=== PATIENT | female | born 1950 | race Caucasian/White ===

== ENCOUNTER 2021-09-29 09:23 | Emergency (ER) | payer MEDICARE, OTHER, SELFPAY ==
[2021-09-29 10:00] VITALS: BP 153/81; PULSE 63; RESP 14; TEMP 36.7; O2SAT 97; BMI 37.8
--- NOTE | 2021-09-29 10:19 | ED_ITS ---
HPI - General Adult General Chief complaint: Dental/Oral/Mouth Injury/Pain Stated complaint: Right sided face pain Time Seen by Provider: 09/29/21 10:02 Source: patient Mode of arrival: ambulatory Limitations: no limitations History of Present Illness HPI narrative: 70-year-old female coming in today complaining of pain in the right side of the face going on for a couple days now. She denies any nausea or vomiting. States that it causes pain in her upper teeth when she has to chew. She denies pain inside her ear but she feels like the pain spreads up and down her face. She states that she felt cold and then hot this morning but no measured fevers. No difficulty breathing or swallowing. No significant swelling of her face noted but she did notice puffy eyes this morning. Patient does have a retainer with false tooth. She states that when she puts the retainer in it goes around her molars and she feels very irritated back there however today it does feel slightly better than it did yesterday. Yesterday however she also noted that there was a yellow discharge coming from her tooth. Of note, patient is allergic/intolerant to Toradol and morphine Related Data Previous Rx's Medication Instructions Recorded amoxicillin 875 mg-potassium 1 tab PO BID 7 days #14 tabs 09/29/21 clavulanate 125 mg tablet Allergies Allergy/AdvReac Type Severity Reaction Status Date / Time latex Allergy Unknown Verified 09/29/21 10:25 ketorolac [From Toradol] AdvReac Unknown Verified 09/29/21 10:25 morphine AdvReac Unknown Verified 09/29/21 10:25 Review of Systems Status of ROS: Reports: 6 or more systems reviewed and unremarkable except as noted in History and below [facility] Social History Smoking Status: Never smoker How often do you have a drink containing alcohol: monthly or less AUDIT-C Alcohol total score: 1 Non-prescribed substance use: denies use Exam Narrative: Exam Narrative: Well-nourished well-developed patient in no acute distress. Alert and oriented. Answers questions appropriately. Mood and affect are appropriate. Thoughts are goal oriented and rational. No tangential or magical thinking noted. Patient speaks in full sentences without needing to catch their breath. Voice sounds normal HEENT: Normocephalic atraumatic. Pupils are equally round reactive to light. Extraocular muscles are intact. Conjunctivae are moist without any icterus noted. Moist mucous membranes. Posterior pharynx is normal. Neck is soft without any lymphadenopathy or thyromegaly. No masses are appreciated. Patient has acute tenderness directly over the 2nd molar on the right upper jaw. She has no tenderness around this this tooth, the gums are not swollen or erythematous. There is no fluctuance noted. She has no tenderness to palpation of the surrounding teeth. Her pain is acutely over 1 tooth. While her upper and lower eyelids bilaterally are slightly puffy I do not appreciate any swelling over the jaw, or cheek. She has no tenderness to palpation of the buccal mucosa. TMs are clear bilaterally. Skin: Well perfused without any obvious rashes. Const: Vital Signs, click to edit/add: Vital Signs - 24 hr 09/29/21 10:00 Temperature 98.1 F Pulse Rate [Pulse Oximeter] 63 Respiratory Rate 14 Blood Pressure [Ri ght Upper Arm] 153/81 H Pulse Oximetry 97 Oxygen Delivery Me thod Room Air Course Vital Signs Vital signs: Initial Vital Signs Temperature 98.1 F 09/29/21 10:00 Temperature Source Temporal Artery Scan 09/29/21 10:00 Pulse Rate 63 09/29/21 10:00 Pulse Rhythm 09/29/21 10:00 Respiratory Rate 14 09/29/21 10:00 Blood Pressure 153/81 H 09/29/21 10:00 Blood Pressure Mean 105 09/29/21 10:00 Blood Pressure Position Sitting 09/29/21 10:00 Pulse Oximetry 97 09/29/21 10:00 Oxygen Delivery Method 09/29/21 10:00 Vital Signs Temperature 98.1 F 09/29/21 10:00 Pulse Rate 63 09/29/21 10:00 Respiratory Rate 14 09/29/21 10:00 Blood Pressure 153/81 H 09/29/21 10:00 Pulse Oximetry 97 09/29/21 10:00 Oxygen Delivery Method 09/29/21 10:00 Temperature 98.1 F 09/29/21 10:00 Pulse Rate 63 09/29/21 10:00 Respiratory Rate 14 09/29/21 10:00 Blood Pressure 153/81 H 09/29/21 10:00 Pulse Oximetry 97 09/29/21 10:00 Oxygen Delivery Method 09/29/21 10:00 Medical Decision Making MDM Narrative Medical decision making narrative: Dental pain. Question a deeper infection that we are not seeing on exam today given the drainage that she noted yesterday. We will go ahead and treat her with Augmentin and she is instructed to follow up with a dentist as soon as she can. Patient was agreeable had no other questions. Discharge Plan Discharge Clinical Impression: Toothache, Dental infection Patient Disposition: Home, Self-Care Condition: Stable Additional Instructions: Take all antibiotics as prescribed. Okay to use Tylenol as needed for discomfort. Follow up with a dentist as soon as you can. Prescriptions: New amoxicillin-pot clavulanate 875-125 mg tablet 1 tab PO BID 7 Days Qty: 14 0RF Stand Alone Forms: [employer] Local Info Instructions
[2021-09-29 10:35] VITALS: BP 153/81; PULSE 63; RESP 14; TEMP 36.7; O2SAT 97
== END 2021-09-29 10:36 | disposition home or self-care (01) ==
PROVIDERS: Emergency Provider Family Medicine
DX: K04.7 Periapical abscess without sinus (principal)
CPT/HCPCS: 99282; 99283

== ENCOUNTER 2023-11-06 20:08 | Inpatient (IN) | payer MEDICARE, OTHER, SELFPAY ==
[2023-11-06 20:24] VITALS: BP 99/63; PULSE 82; RESP 18; TEMP 37.7; O2SAT 96; BMI 37.1
--- NOTE | 2023-11-06 20:38 | CRLHL7_ITS ---
For Patients: As a result of the 21st Century Cures Act, medical imaging exams and procedure reports are released immediately into your electronic medical record. You may view this report before your referring provider. If you have questions, please contact your health care provider. INDICATION: Flank pain, kidney stone suspected. TECHNIQUE: CT abdomen and pelvis without contrast, stone protocol. COMPARISON: Right flank pain. FINDINGS: Kidney/ureters: Evaluation of distal ureters is study limited by hardware associated artifact from the right total hip arthroplasty. Kidneys are normal in caliber. No kidney or ureteral stones and no hydronephrosis. Ureters are normal in caliber with nonspecific diffuse periureteral stranding. Liver/gallbladder/bile ducts: The liver is normal in size, shape and attenuation. Gallbladder is normal without visualized stones or inflammation. No biliary dilatation. Spleen/pancreas/adrenal glands: Right adrenal nodule measures 1.7 cm and approximately 21 Hounsfield units (2/41). The spleen, left adrenal gland, and pancreas are within normal limits. GI tract: The bowel is unremarkable. Normal appendix. Abdominal wall/omentum/peritoneum: No free air or significant free fluid. No mass or inflammation. Ventral abdominal wall soft tissue thickening/scarring, nonspecific. Lymph nodes: No lymphadenopathy. Pelvis: Small calcification along the ventral uterine fundus likely reflects a calcified fibroid. Lower chest: Small hiatal hernia. Bulky mitral annulus calcifications. Asymmetric left chest wall soft tissue thickening and stranding. Bones: Multilevel degenerative changes in the thoracolumbar spine. Diffuse osseous demineralization. IMPRESSION: : 1. There are no visualized renal or ureteral calculi, and no hydroureteronephrosis. Of note, evaluation of the distal ureters is somewhat limited by artifact from right total hip arthroplasty. 2. There is nonspecific bilateral periureteral fat stranding, which may be related to age related changes, though can be seen in the setting of an ascending urinary tract infection. Consider correlation with urinalysis. 3. Asymmetric left chest wall soft tissue thickening and stranding near the partially visualized left inferior breast. Correlation with physical examination, and prior mammographic results (if available), is recommended. 4. Right adrenal nodule measures 1.7 cm and approximately 21 Hounsfield units, and is indeterminate on this single-phase CT. This could be further characterized with a nonemergent adrenal protocol CT. Please note that all CT scans at this facility use dose modulation, iterative reconstruction, and/or weight-based dosing when appropriate to reduce radiation dose to as low as reasonably achievable. Dictated by Lavelle Good MD @ 11/06/2023 10:01:47 PM (Electronically Signed)
--- NOTE | 2023-11-06 20:46 | ED.GENADULT ---
HPI - General Adult General Date Seen: 11/06/23 Chief complaint: Urogenital Problems, Female Stated complaint: Pain, frequency, urgency, nausea Time Seen by Provider: 11/06/23 20:33 Source: patient, RN notes reviewed and old records reviewed Mode of arrival: ambulatory Limitations: no limitations History of Present Illness HPI narrative: Patient is a 73-year-old woman who says that over the weekend she developed pain in her right flank which has gotten progressively worse, she now has pain in her right abdomen as well. She has had nausea, no fever that she knows of but she says she felt warm last night. She does note that she has had dysuria frequency and urgency also since the weekend. She has been other overnight every hour going to the bathroom. She has not noted blood in her urine. She does have a history of kidney stones per her report. She denies abdominal surgeries. Takes lisinopril and metoprolol for high blood pressure, denies other medical history. Today she has had no appetite, she says she has been drinking water. She lists allergies to Toradol and morphine, she says when she had that kidney stone years ago they gave her both of them and they cause some kind of clenching sensation in her chest. She says they then used Dilaudid instead and she eventually passed stone on her own. She did not need any specific treatment for an allergic reaction. She does not smoke or drink. Related Data Home Medications ?Medication ?Instructions ?Recorded ?Confirmed lisinopril 10 mg tablet 10 mg PO DAILY 09/29/21 11/06/23 metoprolol tartrate 25 mg tablet 25 mg PO BID 09/29/21 11/06/23 Previous Rx's ?Medication ?Instructions ?Recorded amoxicillin 875 mg-potassium 1 tab PO BID 7 days #14 tabs 09/29/21 clavulanate 125 mg tablet Allergies Allergy/AdvReac Type Severity Reaction Status Date / Time latex Allergy Unknown Verified 11/06/23 20:27 ketorolac [From Toradol] AdvReac Unknown Verified 11/06/23 20:27 morphine AdvReac Unknown Verified 11/06/23 20:27 Review of Systems Status of ROS: Reports: 10 or more systems reviewed and unremarkable except as noted in History and below PFSH PFSH Social History Smoking Status: Never smoker How often do you have a drink containing alcohol: monthly or less AUDIT-C Alcohol total score: 1 Non-prescribed substance use: denies use Exam Narrative: Exam Narrative: Vital signs as noted above. In general, an alert, mildly ill-appearing elderly woman, she looks uncomfortable. Head: Normocephalic, atraumatic. Eyes: Pupils are equal reactive. Extraocular movements are full. Conjunctivae are normal. ENT: Mucous membranes are somewhat dry. Neck: Supple without lymphadenopathy. Heart: Regular rate and rhythm. No murmur or rub. Lungs: Clear bilaterally. No increased work of breathing, crackles or wheezes. Abdomen: Abdomen is soft and nondistended, she has diffuse right-sided tenderness greater in the upper right quadrant. Negative Handley's. Positive CVA tenderness on the right. Extremities: Well perfused. No edema. No calf tenderness. Pulses intact. Neurologic: Patient is alert and oriented to person and place. Speech is fluent. Face is symmetric. Moves all extremities equally. Affect: Normal. Skin: Warm and dry. Well perfused. Const: Vital Signs, click to edit/add: Vital Signs - 24 hr 11/06/23 20:24 11/06/23 21:11 11/06/23 21:11 Temperature 99.8 F H Pulse Rate [Right Pulse Oximeter] 82 Respiratory Rate 18 Blood Pressure [Ri ght Upper Arm] 99/63 Pulse Oximetry 96 93 93 Oxygen Delivery Me thod Room Air Nasal Cannula Oxygen Flow Rate 2 11/06/23 21:12 11/06/23 22:05 Temperature Pulse Rate [Right Pulse Oximeter] 83 81 Respiratory Rate 14 16 Blood Pressure [Ri ght Upper Arm] 104/57 L 124/62 Pulse Oximetry 93 97 Oxygen Delivery Me thod Nasal Cannula Nasal Cannula Oxygen Flow Rate 2 1 Documenting provider has reviewed patient's vital signs: yes Course Course ED Course: Patient presents with gradually worsening right-sided flank and abdominal pain associated with urinary symptoms over the past several days. She is afebrile here but temp is 99.8?, blood pressure is 99/63. Heart rate is normal at this time. Diagnostic considerations would include pyelonephritis, kidney stone, cholecystitis, pancreatitis, bowel obstruction, appendicitis among others. IV will be established, L of normal saline, labs are pending. CT scan of the abdomen without contrast ordered CT of the abdomen by my review showed some stranding around the ureters, no significant hydronephrosis, normal gallbladder. Radiology read as follows:Patient: [facility] Facility: [facility] RIS Site . Site : [id number] Study: CT-Abdomen/Pelvis W/O-11/06/2023 8:53:12 PM Ordering Physician: Henrik Guzman Final Report: INDICATION: Flank pain, kidney stone suspected. TECHNIQUE: CT abdomen and pelvis without contrast, stone protocol. COMPARISON: Right flank pain. FINDINGS: Kidney/ureters: Evaluation of distal ureters is study limited by hardware associated artifact from the right total hip arthroplasty. Kidneys are normal in caliber. No kidney or ureteral stones and no hydronephrosis. Ureters are normal in caliber with nonspecific diffuse periureteral stranding. Liver/gallbladder/bile ducts: The liver is normal in size, shape and attenuation. Gallbladder is normal without visualized stones or inflammation. No biliary dilatation. Spleen/pancreas/adrenal glands: Right adrenal nodule measures 1.7 cm and approximately 21 Hounsfield units (2/41). The spleen, left adrenal gland, and pancreas are within normal limits. GI tract: The bowel is unremarkable. Normal appendix. Abdominal wall/omentum/peritoneum: No free air or significant free fluid. No mass or inflammation. Ventral abdominal wall soft tissue thickening/scarring, nonspecific. Lymph nodes: No lymphadenopathy. Pelvis: Small calcification along the ventral uterine fundus likely reflects a calcified fibroid. Lower chest: Small hiatal hernia. Bulky mitral annulus calcifications. Asymmetric left chest wall soft tissue thickening and stranding. Bones: Multilevel degenerative changes in the thoracolumbar spine. Diffuse osseous demineralization. IMPRESSION: : 1. There are no visualized renal or ureteral calculi, and no hydroureteronephrosis. Of note, evaluation of the distal ureters is somewhat limited by artifact from right total hip arthroplasty. 2. There is nonspecific bilateral periureteral fat stranding, which may be related to age related changes, though can be seen in the setting of an ascending urinary tract infection. Consider correlation with urinalysis. 3. Asymmetric left chest wall soft tissue thickening and stranding near the partially visualized left inferior breast. Correlation with physical examination, and prior mammographic results (if available), is recommended. 4. Right adrenal nodule measures 1.7 cm and approximately 21 Hounsfield units, and is indeterminate on this single-phase CT. This could be further characterized with a nonemergent adrenal protocol CT. Please note that all CT scans at this facility use dose modulation, iterative reconstruction, and/or weight-based dosing when appropriate to reduce radiation dose to as low as reasonably achievable. Dictated by Lavelle Good MD Blood pressure did respond nicely to fluids, 124/62. She has not had any tachycardia while here. Her labs are overall reassuring in terms of sepsis markers, normal lactate and normal procalcitonin but she does have an elevated white blood count of 16 with 88% neutrophils. She has a normal BUN and creatinine, normal electrolytes. Lactate of 1.6, normal LFTs normal lipase and a CRP of 6.1. Urinalysis was only a small amount of urine so they did not do a micro only a diff. however, she has 3+ blood, positive nitrites and 3+ leukocyte esterase. She also has 3+ ketones. No glucose. Overall, given age, amount of discomfort and evidence of likely ascending urinary tract infection on CT I think she would fare best with IV antibiotics and observation as well as continued hydration. Case discussed with Dr. Lewis who has accepted the patient to the hospitalist service. Given Rocephin 1 g IV. Vital Signs Vital signs: Initial Vital Signs Temperature 99.8 F H 11/06/23 20:24 Temperature Source Temporal Artery Scan 11/06/23 20:24 Pulse Rate 82 11/06/23 20:24 Respiratory Rate 18 11/06/23 20:24 Blood Pressure 99/63 11/06/23 20:24 Blood Pressure Mean 75 11/06/23 20:24 Blood Pressure Position Sitting 11/06/23 20:24 Pulse Oximetry 96 11/06/23 20:24 Oxygen Delivery Method Room Air 11/06/23 20:24 Vital Signs Temperature 99.8 F H 11/06/23 20:24 Pulse Rate 82 11/06/23 20:24 Respiratory Rate 18 11/06/23 20:24 Blood Pressure 99/63 11/06/23 20:24 Pulse Oximetry 96 11/06/23 20:24 Oxygen Delivery Method Room Air 11/06/23 20:24 Temperature 99.8 F H 11/06/23 20:24 Pulse Rate 81 11/06/23 22:05 Respiratory Rate 16 11/06/23 22:05 Blood Pressure 124/62 11/06/23 22:05 Pulse Oximetry 97 11/06/23 22:05 Oxygen Delivery Method Nasal Cannula 11/06/23 22:05 Oxygen Flow Rate 1 11/06/23 22:05 Medications Administered Medications: Discontinued Medications Generic Name Dose Route Start Last Admin Trade Name Freq PRN Reason Stop Dose Admin Hydromorphone HCl 0.5 mg 11/06/23 20:38 11/06/23 20:58 Hydromorphone 0.5 Mg/0.5 Ml Inj IVP 11/06/23 20:39 0.5 mg ONCE ONE Administration Sodium Chloride 1,000 mls @ 1,000 mls/hr 11/06/23 20:45 11/06/23 20:58 0.9 % Sodium Chloride 1000 Ml IV 11/06/23 21:44 1,000 mls/hr .Q1H YARA Administration Ceftriaxone Sodium 1 gm/ 100 mls @ 200 mls/hr 11/06/23 22:17 11/06/23 22:25 Sodium Chloride IVPB 11/06/23 22:18 200 mls/hr ONCE ONE Administration Ondansetron HCl 4 mg 11/06/23 20:38 11/06/23 20:58 Ondansetron 2 Mg/Ml Inj IVP 11/06/23 20:39 4 mg ONCE ONE Administration Medical Decision Making Lab Data Labs: Lab Results 11/06/23 11/06/23 Range/Units 20:56 22:00 WBC 16.05 H (4.50-11.00) K/uL RBC 5.43 H (4.00-5.20) m/uL Hgb 14.7 (12.0-16.0) gm/dL Hct 46.2 (33.0-51.0) % MCV 85 (80-100) fL MCH 27 (26-34) pg MCHC 32 (32-36) gm/dL RDW Coeff of Lisa 16.0 H (11.5-15.5) % Plt Count 571 H (140-440) K/uL Neut % (Auto) 88.2 H (42.0-72.0) % Lymph % (Auto) 4.9 L (20-44) % Potter % (Auto) 5.7 (0.0-11.0) % Eos % (Auto) 0.9 (0.0-7.0) % Baso % (Auto) 0.1 (0.0-3.0) % Neut # (Auto) 14.20 H (1.7-7.0) K/uL Lymph # (Auto) 0.80 L (0.90-2.90) K/uL Potter # (Auto) 0.90 (0.00-0.90) K/UL Eos # (Auto) 0.10 (0.00-0.50) K/uL Baso # (Auto) 0.00 (0.00-0.30) K/uL Abs Immat Gran (auto) 0.00 (0.00-0.30) K/uL Imm/Tot Granulo (auto) 0.2 % Sodium 135 (135-149) mmol/L Potassium 4.1 (3.6-5.1) mmol/L Chloride 102 (96-114) mmol/L Carbon Dioxide 25 (20-32) mmol/L Anion Gap 8 (7-15) mEq/L BUN 13 (7-30) mg/dL Creatinine 1.0 (0.5-1.5) mg/dL Estimated Creat Clear 41.97 Estimated GFR 59 ml/min Glucose 138 H (60-115) mg/dL Lactate 1.6 (0.5-1.9) mmol/L Calcium 9.3 (8.4-10.6) mg/dL Total Bilirubin 1.2 (0.1-1.5) mg/dL Direct Bilirubin 0.3 (0.0-0.5) mg/dL AST 25 (12-35) U/L ALT 18 (4-35) U/L Alkaline Phosphatase 90 (40-150) U/L C-Reactive Protein 6.1 H (0.5-1.0) mg/dL Total Protein 6.8 (6.0-8.3) g/dL Albumin 4.0 (3.3-5.0) g/dL Lipase 39 (23-300) U/L Procalcitonin 0.07 (<0.50) ng/mL Urine Color Yellow (Yellow) Urine Appearance Cloudy A (Clear) Urine pH 6.0 (5.0-8.5) Ur Specific [place] 1.025 (1.000-1.030) Urine Protein 3+ A (Negative) Urine Glucose (UA) Negative (Negative) Urine Ketones 3+ A (Negative) Urine Blood 3+ A (Negative) Urine Nitrite Positive A (Negative) Urine Bilirubin 1+ A (Negative) Urine Urobilinogen 0.2 (0.2-1.0) Ur Leukocyte Esterase 3+ A (Negative) Urine RBC (0-2) Urine WBC (0-5) Ur Squamous Epith Cells (None-Few) Urine Bacteria (None) Discharge Plan Discharge Clinical Impression: UTI (urinary tract infection), SIRS (systemic inflammatory response syndrome) Patient Disposition: Admitted As Observation Condition: Improved
[2023-11-06] MEDS: ONDANSETRON 2 MG/ML inj 4 MG IVP (20:58)
[2023-11-06] MEDS: 0.9 % SODIUM CHLORIDE 1000 ml 1,000 ML IV (20:58)
[2023-11-06] MEDS: HYDROmorphone 0.5 mg/0.5 ml inj IVP (20:58)
[2023-11-06 21:02] LABS: Basophils Percent Auto 0.1 % (0.0-3.0); Eosinophils Percent Auto 0.9 % (0.0-7.0); Hematocrit 46.2 % (33.0-51.0); Hemoglobin* 14.7 gm/dL (12.0-16.0); Immature Granulocytes Pct Auto 0.2 %; Lymphocytes Percent Auto 4.9 % (20-44); Mean Corpuscular HGB Conc 32 gm/dL (32-36); Mean Corpuscular Hemoglobin 27 pg (26-34); Mean Corpuscular Volume 85 fL (80-100); Monocytes Percent Auto 5.7 % (0.0-11.0); Neutrophils Percent Auto 88.2 % (42.0-72.0); Platelet Count* 571 K/uL (140-440); Red Blood Count 5.43 m/uL (4.00-5.20); White Blood Count* 16.05 K/uL (4.50-11.00)
[2023-11-06 21:03] LABS: Lactate Sepsis w/Reflex* 1.6 mmol/L (0.5-1.9)
[2023-11-06 21:04] LABS: Slide Review Reflex No
[2023-11-06 21:11] VITALS: O2SAT 93
[2023-11-06 21:12] VITALS: BP 104/57; PULSE 83; RESP 14; O2SAT 93
--- OUTSIDE RECORDS SUMMARY | 2023-11-06 21:35 | XMS_ITS | Encounter Summary ---
Author Organization [facility] Address [address] [place] [address] Care Team Providers Care Clinical Staff Anesthesiologist Name Role Phone Elsewhere, Pcp Primary Care Provider Unavailabl e Encounter Details Date Type Department Care Team (Late st Contact Info) Description 05/09/2007 Historical Ophthalmology [facility] Megan Finley M.D. [address] [place] [address] Social History Tobacco Use Types Packs/Day Years Used Date Smoking Tobacco: Never Assessed Sex and Gender Information Value Date Recorded Sex Assigned at Female 12/28/2021 3:28 PM HOSPITALITY SPECIALIST Gender Identity Female 10/06/2021 9:35 AM CDT Sexual Orientation Straight 10/06/2021 9: 35 AM CDT documented as of this encounter Progress Notes * Megan Finley M.D. - 05/09/2007 1:00 PM CDT Eye General CHIEF COMPLAINT follow up for floaters, plaquenil HISTORY OF PRESENT ILLNESS Patient is here today for a yearly eye exam. Hx of posterior vitreous separation (right more than left). Floaters in the right eye seem to be less noticeable over the past year. Flashes of light in the right eye have subsided over the last year. Patient did notice after the first of the year a jagged spiral prism sparkle in both eyes that lasted maybe an hour. At the time she did have a headache. Denies ocular pain and diplopia. Patient taking Plaquenil (currently using 200 mg 2xday) for the past years. Near and distance vision stable in both eyes. IMPRESSION / REPORT / PLAN #1 Posterior vitreous separation #2 Anterior basement membrane dystrophy #3 Plaquenil use, no evidence of ocular sequelae Annual exam recommended #4 Glaucoma suspect, based on cupping Discussed options with patient, including visual field testing. She does not know that she is goingto continue following here at [facility], so is not interested in field testing here. Says she has had that done in the past. Agreed to photos today so that if she returns, we can at least follow her discs. DIAGNOSIS #1 Posterior vitreous separation #2 Anterior basement membrane dystrophy #3 Plaquenil use, no evidence of ocular sequelae #4 Glaucoma suspect, based on cupping CDM Reports - EYEGEN Id: [id number] Status: Fnl documented in this encounter Plan of Treatment Upcoming Encounters Date Type Department Care Team (Latest Contact Info) Description 11/29/2023 7:15 AM CDT Hospital Encounter T [facility] 01 4 AM ADMIT [address] [place] [address] Guerline Giron M.D. [address] [place] [phone] 11/29/2023 7:15 AM CDT - 11/29/2023 9:32 AM CDT Surgery RST [facility] MAIN OR [address] [place] [address] Guerline Giron M.D. [address] [place] [phone] INJECTION FAT into mastectomy flaps; harvested from whole abdomen, flanks, medial thighs, knees, proceed as indicated 12/06/2023 9:30 AM CDT Office Visit Division of Plastic Surgery in [place], [place] [address] [place] [phone] Tamire, Renetta, KITCHEN STEWARDESS, C.N.P., D.N.P. [address] [place] [address] Scheduled Procedures Name Priority Associated Diagnoses Date/Ti me INJECTION FAT Deformity Reconstructed Breast Lesion Lip 11/29/2023 7:15 AM CDT BIOPSY Deformity Reconstructed Breast Lesion Lip 11/29/2023 7:15 AM CDT documented as of this encounter Visit Diagnoses Not on filedocumented in this encounter Additional Health Concerns Infection Onset Date Last Indicated Resolved Time COVID19 Pending 04/27/2021 04/27/2021 04/27/2021 1 :31 PM CDT documented as of this encounter Care Teams Clinical Staff Anesthesiologist Relationship Specialty Start Date End Date Elsewhere, Pcp PCP - General Internal Medicine 04/26/21 documented as of this encounter
--- OUTSIDE RECORDS SUMMARY | 2023-11-06 21:35 | XMS_ITS | Encounter Summary ---
Author Organization [facility] Address [address] [place] [id number] Care Team Providers Care Sales Promotion Director Name Role Phone Elsewhere, Pcp Primary Care Provider Unavailabl e Reason for Referral * Outpatient (Routine) - Closed Specialty Diagnoses / Procedures Referred By Jenn delgado Referred To Contact Diagnoses Pain Nerve Dysesthetic Procedures EMG Marlena Giron M.D. [address] [place] [address] [facility] Referral ID Status Reason Start Date Expiration Date Visits Re quested Visits Authorized [id number] Closed 08/05/2023 08/04/2024 1 1 * Outpatient (Routine) - Closed Specialty Diagnoses / Procedures Referred By Jenn delgado Referred To Contact Neurology Diagnoses Pain Nerve Dysesthetic Marlena Giron M.D. [address] [place] [address] [facility] Referral ID Status Reason Start Date Expiration Date Visits Re quested Visits Authorized [id number] Closed 08/05/2023 02/03/2025 1 1 Reason for Visit * Outpatient (Routine) - Closed Specialty Diagnoses / Procedures Referred By Jenn delgado Referred To Contact Plastic Surgery Mandi Gupta P.A.-C. [address] [place] [address] Marlena Giron M.D. [address] [place] [phone] Referral ID Status Reason Start Date Expiration Date Visits Re quested Visits Authorized [id number] Closed 05/09/2023 11/07/2024 1 1 Encounter Details Date Type Department Care Team (Latest Contact Info) Description 08/02/2023 11:15 AM CDT Office Visit Division of Plastic Surgery in [place], [place] [address] [place] [phone] Marlena Giron M.D. [address] [place] [phone] Deformity Reconstructed Breast (Primary Dx); Lesion Lip; Pain Nerve Dysesthetic Social History Tobacco Use Types Packs/Day Years Used Date Smoking Tobacco: Never Smokeless Tobacco: Never Alcohol Use Standard Drinks/Week Comments Not Currently 0 (1 standard drink = 0.6 oz pur e alcohol) 6/year Humiliation, Afraid, Rape, and Kick questionnair e Answer Date Recorded Within the last year, have y ou been afraid of your partner or ex-partner? No 12/28/2021 Within the last year, have y ou been humiliated or emotionally abused in other ways by your partner or ex-partner? No Within the last year, have y ou been kicked, hit, slapped, or otherwise physically hurt by your partner or ex-partner? No 12/28/2021 Within the last year, have y ou been raped or forced to have any kind of sexual activity by your partner or ex-partner? No 12/28/2021 Social Connection and Isolat ion Panel [NHANES] Answer Date Recorded In a typical week, how many times do you talk on the phone with family, friends, or neighbors? Twice a week 12/28/2021 How often do you get togethe r with friends or relatives? Once a week 12/28/2021 How often do you attend chur ch or church services? More than 4 times per year 12/28/2021 Do you belong to any clubs o r organizations such as yarsanism groups, unions, fraternal or athletic groups, or school groups? Yes 12/28/2021 How often do you attend meet ings of the clubs or organizations you belong to? More than 4 times per year 12/28/2021 Are you , , di vorced, , never , or living with a partner? 12/28/2021 AUDIT-C Answer Date Recorded Q1: How often do you have a drink containing alc ohol? Monthly or less 12/28/2021 Q2: How many drinks containi ng alcohol do you have on a typical day when you are drinking? 1 or 2 12/28/2021 Q3: How often do you have si x or more drinks on one occasion? Never 12/28/2021 Overall Financial Resource Strain (CARDIA) Answe r Date Recorded How hard is it for you to pa y for the very basics like food, housing, medical care, and heating? Not very hard 01/14/2023 [facility] - Occupational Stress Questionnaire Answer Date Recorded Do you feel stress - tense, restless, nervous, or anxious, or unable to sleep at night because your mind is troubled all the time - these days? Only a little 12/28/2021 Exercise Vital Sign Answer Date Recorde d On average, how many days pe r week do you engage in moderate to strenuous exercise (like a brisk walk)? 1 day 01/14/2023 On average, how many minutes do you engage in exercise at this level? 20 min 01/14/2023 Hunger Vital Sign Answer Date Recorded Within the past 12 months, y ou worried that your food would run out before you got the money to buy more. Never true 01/15/20 23 Within the past 12 months, t he food you bought just didn't last and you didn't have money to get more. Never true 01/14/2023 PRAPARE - Transportation Answer Date Re corded In the past 12 months, has l ack of transportation kept you from medical appointments or from getting medications? No 05/2022 In the past 12 months, has l ack of transportation kept you from meetings, work, or from getting things needed for daily living? No 01/14/2023 Nutrition Answer Date Recorded Nutrition: EVOO Fat Source Yes 01/14 On average, how many serving s of fruits and vegetables do you eat per day (serving size is equal to 1 cup or approximately the size of a tennis ball)? 0-2 01/14/2023 Dental Answer Date Recorded Dental: Regular Dentist Yes 12/29/19 Employment Answer Date Recorded Employment status Retired 01/14/2023 Housing Stability Answer Date Recorded What is your living situation today? I have a [facility] place to live 01/14/2023 Education Answer Date Recorded What is the highest level of school you have completed or the highest degree you have received? Doctorate 12/28/2021 Sex and Gender Information Value Date Recorded Sex Assigned at Female 12/28/2021 3:28 PM [employer] Gender Identity Female 10/06/2021 9:35 AM CDT Sexual Orientation Straight 10/06/2021 9: 35 AM CDT documented as of this encounter Last Filed Vital Signs Vital Sign Reading Time Taken Comments Blood Pressure - - Pulse - - Temperature - - Respiratory Rate - - Oxygen Saturation - - Inhaled Oxygen Concentration - - Weight 109 kg (239 lb 10.2 oz) 08/02/2023 11:20 AM CDT Height 164.4 cm (5' 4.72) 08/02/2023 11:20 AM C DT Body Mass Index 40.22 08/02/2023 11:20 AM CDT documented in this encounter Consult Notes * Marlena Giron M.D. - 08/02/2023 11:15 AM CDT SUBJECTIVE REASON FOR CONSULT Multiple. HISTORY OF PRESENT ILLNESS She had this hyperkeratotic lesion on the right lower lip; shave biopsy. Overall, everything healedexcept for 1 little spot that she keeps licking. With regard to her breasts, she likes the left side, the right side is still sunken medially. Her right groin pain is better, but now she has numbness and pain on the distal knee and some lateral aspect. OBJECTIVE PHYSICAL EXAMINATION General: Pleasant lady in the room with nurse Convery. Skin: Her lip, right lower lip, there is a punctate area that I could see a tiny bump, but no ulceration. However, everything is smooth. Breasts: Her right breast irregularity sunken especially parasternal. Symmastia noted. Extremities: Her right groin has healed well. Lateral femoral cutaneous nerve site no longer tender. Vital Signs: 164.4 cm tall; 108.7 kg. ASSESSMENT / PLAN #1 Lower lip irritation versus lesion We certainly can do a shave biopsy again and fulgurate the whole area for her or have our partner laser her lower lip. #2 Breast reconstruction deformity Certainly, we could fat graft. Additionally, improve both sides. Pros and cons discussed. #3 Right lateral thigh numbness Will refer to Neurology visit, certainly would take a long time to get and will not be able to obtain for today. Photo requested. I will do whatever is best for the patient. She will let our team know. Marlena Giron M.D. CT CT Job ID: [id number] documented in this encounter Plan of Treatment Upcoming Encounters Date Type Department Care Team (Latest Contact Info) Description 11/29/2023 7:15 AM CDT Hospital Encounter [facility]ST RO 4 AM ADMIT [address] [place] [address] Marlena Giron M.D. [address] [place] [address] 11/29/2023 7:15 AM CDT - 11/29/2023 9:32 AM CDT Surgery [facility] MAIN OR [address] [place] [address] Marlena Giron M.D. [address] [place] [address] INJECTION FAT into mastectomy flaps; harvested from whole abdomen, flanks, medial thighs, knees, proceed as indicated 12/06/2023 9:30 AM CDT Office Visit Division of Plastic Surgery in [place], [place] [address] [place] [address] Renetta Almonte APRN, C.N.P., D.N.P. [address] [place] [address] Scheduled Procedures Name Priority Associated Diagnoses Date/Ti me INJECTION FAT Deformity Reconstructed Breast Lesion Lip 11/29/2023 7:15 AM CDT BIOPSY Deformity Reconstructed Breast Lesion Lip 11/29/2023 7:15 AM CDT Scheduled Referrals Name Type Priority Associated Diagnoses Order Schedule Neurology - Neuromuscular consult (clinic) Outpatient Referral Routine Pain Nerve Dysesthetic Expected: 08/05/2023 (Approximate), Expires: 11/04/2024 documented as of this encounter Results * EMG (08/08/2023 7:53 AM CDT) 08/08/2023 8:00 AM CDT Narrative EMG - 08/08/2023 9:40 AM CDT Table formatting from the original result was not included. 08-Aug-2023 ? Electromyography ? Final Report Study Number: 2 EMG Transport Aircrewman: Yonas Cronin 127 or [phone] Referred by: MARLENA GIRON V. (127 or [phone]) Referred for: right leg pain Referral Code: ?022 RX: 130 SUMMARY: Prior to starting the procedure, the patient's identity was verified, pertinent available records were reviewed, the nature of the procedure was explained, the appropriate sites of the exam were confirmed directly with the patient, and a pre-procedure pause was performed for final verification of all of the above. ?? The right fibular compound muscle action potential amplitude was reduced. ??The left fibular motor response absent. ??The remainder of the nerve conduction studies are normal. The needle examination revealed large motor unit potentials with reduced numbers of motor units under voluntary control in the right extensor digitorum brevis muscle. ??The remainder of the needle examination is normal. CLINICAL INTERPRETATION: The EMG study is abnormal. ??The electrophysiological findings noted in the extensor digitorum brevis muscle or the related to local trauma to the muscle or the nerve innervating the muscle. ??There is no electrophysiological evidence of a length-dependent sensorimotor peripheral neuropathy or of a lumbosacral radiculopathy involving the right lower limb. Rd Cronin (127 or [phone])/SMB NERVE CONDUCTIONS ??Record Rep ?? Normal ??Normal Distal Normal F-Wave F-Wave Temp Nerve Type Site Stim Side Amp Amp CV CV Lat Lat Lat Est (??C) Fibular Motor EDB ??L NR (> 2.0) ??(> 41) NR (< 6.6) ?? 32.1 Fibular Motor EDB ??R 1.0 (> 2.0) 43 (> 41) 3.2 (< 6.6) ?? 33.7 Tibial Motor AH ??R 8.2 (> 4.0) 47 (> 40) 3.5 (< 6.1) 49.6 47.1 33.4 Sural Sensory Ankle ??R 3 (> 0.0) 37 (> 40) 4.5 (< 4.5) ?? 33.4 NEEDLE EMG ??Ins Spont ??MUP ??Recruitment ??Duration ??Amplitude ??Phases ?? Muscle Side Act Fib Fasc Normal Activ Reduced Rapid Long Short High Low % Turns Lumbar paraspinal (lower) R NL 0 0 ----- ? Gluteus medius R NL 0 0 NL ? Vastus medialis R NL 0 0 NL ? Gastrocnemius (medial head) R NL 0 0 NL ? Tibialis anterior R NL 0 0 NL ? Extensor digitorum brevis R NL 0 0 ?? + ??++ ??++ ? Peroneus tertius R NL 0 0 NL ? This interpretation has been electronically signed: Yonas Cronin M.D. at 08/08/2023 9:39:49 AM CDT Procedure Note Yonas Cronin M.D. - 08/08/2023 08-Aug-2023 Electromyography Final Report Study Number: 2 EMG Transport Aircrewman: Yonas Cronin. 127 or [phone] Referred by: MARLENA GIRON V. (127 or [phone]) Referred for: right leg pain Referral Code: 022 RX: 130 SUMMARY: Prior to starting the procedure, the patient's identity wasverified, pertinent available records were reviewed, the nature of theprocedure was explained, the appropriate sites of the exam were confirmeddirectly with the patient, and a pre-procedure pause was performed forfinal verification of all of the above. The right fibular compound muscle action potential amplitude was reduced.The left fibular motor response absent. The remainder of the nerveconduction studies are normal. The needle examination revealed large motor unit potentials with reducednumbers of motor units under voluntary control in the right extensordigitorum brevis muscle. The remainder of the needle examination isnormal. CLINICAL INTERPRETATION: The EMG study is abnormal. Theelectrophysiological findings noted in the extensor digitorum brevismuscle or the related to local trauma to the muscle or the nerveinnervating the muscle. There is no electrophysiological evidence of alength-dependent sensorimotor peripheral neuropathy or of a lumbosacralradiculopathy involving the right lower limb. Rd Cronin (127 or [phone])/SMB NERVE CONDUCTIONS Record Rep Normal Normal Distal Normal F-Wave F-Wave Temp Nerve Type Site Stim Side Amp Amp CV CV Lat Lat Lat Est (??C) Fibular Motor EDB L NR (> 2.0) (> 41) NR (< 6.6) 32.1 Fibular Motor EDB R 1.0 (> 2.0) 43 (> 41) 3.2 (< 6.6) 33.7 Tibial Motor AH R 8.2 (> 4.0) 47 (> 40) 3.5 (< 6.1) 49.6 47.1 33.4 Sural Sensory Ankle R 3 (> 0.0) 37 (> 40) 4.5 (< 4.5) 33.4 NEEDLE EMG Ins Spont MUP Recruitment Duration Amplitude Phases Muscle Side Act Fib Fasc Normal Activ Reduced Rapid Long Short High Low %Turns Lumbar paraspinal (lower) R NL 0 0 ----- Gluteus medius R NL 0 0 NL Vastus medialis R NL 0 0 NL Gastrocnemius (medial head) R NL 0 0 NL Tibialis anterior R NL 0 0 NL Extensor digitorum brevis R NL 0 0 + ++ ++ Peroneus tertius R NL 0 0 NL This interpretation has been electronically signed: Yonas Cronin M.D. at 08/08/2023 9:39:49 AM CDT Marlena Giron M.D. NEUROLOGY ORDERABLES EMG documented in this encounter Visit Diagnoses Diagnosis Deformity Reconstructed Breast- Primary Lesion Lip Pain Nerve Dysesthetic Pain Nerve Dysesthetic Deformity Reconstructed Breast Lesion Lip documented in this encounter Care Teams Sales Promotion Director Relationship Specialty Start Date End Date Elsewhere, Pcp PCP - General Internal Medicine 04/26/21 documented as of this encounter
--- OUTSIDE RECORDS SUMMARY | 2023-11-06 21:35 | XMS_ITS | Referral Summary ---
Author Organization [facility] Address [address] [place] [address] Care Team Providers Care Business Executive Name Role Phone Elsewhere, Pcp Primary Care Provider Unavailabl e Source Comments Patient records contain information from all sites at [facility]. For routine questions regarding patient records, call [phone] during business hours, M-F 8:00 AM - 5:00 PM Central Time. Record requests for emergency care only can be directed to [phone] at any time.[facility] Encounters Date Type Department Care Team Description 08/08/2023 7:53 AM CDT - 08/08/2023 11:59 PM CDT Hospital Encounter Department of Neurology in [place], [place] [address] [place] [address] Marlena Christian M.D. Pain Nerve Dysesthetic Discharge Disposition: Home or Self Care 08/08/2023 2:30 PM CDT Comprehensive Visit Department of Neurology in [place], [place] [address] [place] [address] Megan Hameed M.D. Pain Nerve Dysesthetic from Last 3 Months Allergies Active Allergy Reactions Criticality Noted Date Comments Adhesive Rash High 04/26/2021 Ketorolac Other (see comments) High 11/23/2013 tightness in chest Tightening of chest Latex Hives (Reselect Reaction),Other (see comments),Edema (Reselect Reaction) High 07/27/2004 Facial swelling when touched there with gloves Morphine Other (see comments) High 11/23/2013 tightness in chest Tightening of her chest Pepper (Genus Capsicum) Other (see comments) 11/29/2022 Gao back of mouth Rivaroxaban Nausea And Vomiting High 10/27/2013 XARELTO Suture (Absorbable) Other (see comments) 01/14/2023 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 Active cholecalciferol (VITAMIN D3) 50 mcg (2,000 Unit) capsule Take 1 capsule by mouth daily. 11/23/2013 Active rosuvastatin (CRESTOR) 10 mg tablet Take 10 mg by mouth every morning. 10/18/2020 Active timolol (TIMOPTIC) 0.5 % ophthalmic solution Administer 1 drop into both eyes daily. Active multivitamin-eye (PreserVision Lutein) 226 mg-200 Unit-5 mg-0.8 mg capsule Take 1 capsule by mouth every morning. Active lisinopriL (PRINIVIL,ZESTRIL) 10 mg tablet Take 10 mg by mouth every morning. 10/18/2020 Active metoprolol tartrate (LOPRESSOR) 25 mg tablet Take 1 tablet by mouth 2 (two) times a day. 03/23/2021 Active LUTEIN ORAL Take 1 capsule by mouth as needed. Active medium chain triglycerides (MCT OIL ORAL) Take 1 each by mouth as needed. ONE SCOOPFUL Active vitamin B complex (VITAMIN B-100 COMPLEX ORAL) Take 1 capsule by mouth every morning. Active co-enzyme Q-10 (CO Q-10) 100 mg capsule Take 100 mg by mouth every morning. Active SELENIUM ORAL Take 200 mcg by mouth every morning. Active TURMERIC ORAL Take 1,000 mg by mouth every morning. Active calcium carb/magnesium ox,carb (AMMY-MAG ORAL) Take 1 tablet by mouth Medrol Dose Pack scheduling ONLY. 1000/500 Active vitamin E 180 mg (400 Unit) capsule Take 400 Int'l Units by mouth daily. 06/14/2020 Active vitamins A,C,W-vdyb-wzufua (PRESERVISION AREDS) 7,160 Units-113 mg-100 Units per tablet Take 1 tablet by mouth daily. Active ketoconazole (NIZORAL) 2 % creamIndications:Inte rtrigo Apply 1 Application topically 2 (two) times a day. Apply to groin/intertrigo areas twice a day. 15 g 11/29/2022 Active Additional Information Patient taking differently:1 Application topicalAs needed, Apply to groin/intertrigo areas twice a day., Reported on 01/14/2023 triamcinolone (KENALOG) 0.1 % ointmentIndications:A trophy Vulva Apply 1 Application topically 2 (two) times a day as needed for rash. Apply to vulva twice a day as needed. 180 g 3 11/29/2022 Active acetaminophen (TYLENOL) 500 mg tablet Take 2 tablets (1,000 mg total) by mouth every 6 (six) hours as needed for pain. 11/30/2022 Active petrolatum jelly, VASELINE, Apply topically 3 (three) times a day. Apply to lower lip three times daily and as needed. 106 g 1 11/30/2022 Active Active Problems Problem Noted Date Diagnosed Date Lesion Lip 09/03/2023 Preanesthetic Medical Exam 11/29/2022 Hyperlipidemia 11/19/2022 Deformity Reconstructed Breast 11/16/2022 Cancer Breast Personal History 11/16/2022 Hypertension Essential Primary 04/26/2021 Atrial Fibrillation Paroxysmal 04/26/2021 Overview (04/27/2021): Single episode, converted to NSR with hydration and rate control, no cardioversion needed Morbid Obesity Body Mass Index 40.0-44.9 Adult 0 04/26/2021 Varicose Vein Lower Extremity With Pain Bilatera l 02/15/2021 Swelling Leg 02/15/2021 Asymmetry Breast 01/31/2021 Overview (01/31/2021): Added automatically from request for surgery [id number] Mastectomy Status Post Bilateral 01/31/2021 Overview (01/31/2021): Added automatically from request for surgery [id number] Immunizations Name Administration Dates Next Due H1N1 All Forms 12/15/2008 Influenza TIV (IM) 12/01/2004 Influenza high dose QV(65 ye ars or older) (PF) 01/05/2019,01/09/2018,01/17/2017,2015 Influenza, Injectable, Quadrivalent 12/02/2020 Influenza, Seasonal, Injectable 12/01/2004 Influenza, Unspecified 12/02/2020,01/11/2013 PPD Test 07/12/1999,02/18/1998 PPSV23 04/26/2021(Deferred: Patient decision - CHECK WITH PCP),12/01/2004,07/29/2004 Pneumococcal, Unspecified 02/12/2004 RZV (SHINGRIX) 04/26/2021(Deferred: Patient decision - CHECK WITH PCP) Tdap 04/26/2021(Deferred: Patient decision - CURRENT) Social History Tobacco Use Types Packs/Day Years Used Date Smoking Tobacco: Never Smokeless Tobacco: Never Alcohol Use Standard Drinks/Week Comments Not Currently 0 (1 standard drink = 0.6 oz pur e alcohol) /year Humiliation, Afraid, Rape, and Kick questionnair e [...] week 12/28/2021 How often do you attend [facility] or episcopal services? More than 4 times per year 12/28/2021 Do you belong to any clubs o r organizations such as hindu groups, unions, fraternal or athletic groups, or [...] care, and heating? Not very hard 01/14/2023 [facility] - Occupational Stress [...] your living situation today? I have a [facility] place to live 01/14/2023 Education Answer Date Recorded What is the highest level of school you have completed or the highest degree you have received? 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 Gender Identity Female 10/06/2021 9:35 AM CDT Sexual Orientation Straight 10/06/2021 9: 35 AM CDT Last Filed Vital Signs Vital Sign Reading Time Taken Comments Blood Pressure 154/86 11/30/2022 2:45 PM CDT Pulse 96 11/30/2022 2:45 PM CDT Temperature 36.4 ??C (97.5 ??F) 11/30/2022 12:53 PM C DT Respiratory Rate 19 11/30/2022 2:45 PM CDT Oxygen Saturation 90% 11/30/2022 2:45 PM CDT Inhaled Oxygen Concentration - - Weight 109 kg (239 lb 10.2 oz) 08/02/2023 11:20 AM CDT Height 164.4 cm (5' 4.72) 08/02/2023 11:20 AM C DT Body Mass Index 40.22 08/02/2023 11:20 AM CDT Plan of Treatment Upcoming Encounters Date Type Department Care Team (Latest Contact Info) Description 11/29/2023 7:15 AM CDT Hospital Encounter RST [facility] 01 4 AM ADMIT [address] [place] [address] Marlena Christian M.D. [address] [place] [address] 11/29/2023 7:15 AM CDT - 11/29/2023 9:32 AM CDT Surgery RST [facility] MAIN OR [address] [place] [address] Marlena Christian M.D. [address] [place] [address] INJECTION FAT into mastectomy flaps; harvested from whole abdomen, flanks, medial thighs, knees, proceed as indicated 12/06/2023 9:30 AM CDT Office Visit Division of Plastic Surgery in [place], [place] [address] [place] [address] Renetta Almonte APRN, C.N.P., D.N.P. [address] [place] [address] Scheduled Procedures Name Priority Associated Diagnoses Date/Ti me INJECTION FAT Deformity Reconstructed Breast Lesion Lip 11/29/2023 7:15 AM CDT BIOPSY Deformity Reconstructed Breast Lesion Lip 11/29/2023 7:15 AM CDT Medical Devices Implanted Type Area Student Outreach Coordinator Device Identifier Shelf Expiration Date Model / Serial / Lot Hip Implant Hip Implant Right: Hip Knee Implant Knee Implant Bilateral : Knee Dental Implanted:Qty: 4 Misc Other Tooth Procedures Procedure Name Priority Date/Time Associated Diagnosis Comments EMG Routine 08/08/2023 7:53 AM CDT Pain Nerve Dysesthetic POTASSIUM, S/P STAT 11/30/2022 7:09 AM CDT LIPID PANEL, S Routine 11/29/2022 9:22 AM CDT Preanesthetic Medical Exam BASIC METABOLIC PANEL, S/P Routine 11/29/2022 9:22 AM CDT Preanesthetic Medical Exam from Last 3 Months or Most Recently Relevant to Health Maintenance Results * EMG (08/08/2023 7:53 AM CDT) 08/08/2023 8:00 AM CDT Narrative [facility] - 08/08/2023 9:40 AM CDT Table formatting from the original result was not included. 08-Aug-2023 ? Electromyography ? Final Report Study Number: 2 EMG Public Health Educator: Yonas Cronin 127 or [phone] Referred by: MARLENA CHRISTIAN V. (127 or [phone]) Referred for: right leg pain Referral Code: [...] right lower limb. Rd Cronin (127 or [phone])/SMB NERVE CONDUCTIONS ??Record Rep ?? Normal ??Normal [...] Electromyography Final Report Study Number: 2 EMG Public Health Educator: Yonas Cronin 127 or [phone] Referred by: MARLENA CHRISTIAN V. (127 or [phone]) Referred for: right leg pain Referral Code: [...] a lumbosacralradiculopathy involving the right lower limb. WMoy Cronin (127 or [phone])/SMB NERVE CONDUCTIONS Record Rep Normal Normal Distal [...] M.D. at 08/08/2023 9:39:49 AM CDT Marlena Christian M.D. NEUROLOGY ORDERABLES Performing Organization Address City/State/[facility] Co de Phone Number [facility] * Potassium (11/30/2022 7:09 AM CDT) Potassium, P 4.3 3.6 - 5.2 mmol/L 11/30/2022 7:48 AM CDT METH Blood (Blood, Venous) 11/30/2022 7:09 AM CDT 11/30/2022 7:29 AM CDT Phuong Jordan M.D. LAB BLOOD ADD-ON [facility] [address] [place] [address], [place] METH [facility] [address] [place] [address] * Lipid Panel (11/29/2022 9:22 AM CDT) Triglycerides 108 mg/dL 11/29/2022 10:36 AM CDT DTL Comment: ----REFERENCE VALUE---- Normal: <150 mg/dL Borderline High: 150-199 mg/dL High: 200-499 mg/dL Very High: > or =500 mg/dL Cholesterol, Total 154 mg/dL 2022 10:36 AM CDT DTL Comment: ----REFERENCE VALUE---- Desirable: < 200 mg/dL Borderline High: 200 - 239 mg/dL High: > or = 240 mg/dL Cholesterol, LDL, Calculated 77 mg/dL 11/29/2022 10:36 AM CDT DTL Comment: ----REFERENCE VALUE---- Desirable: <100 mg/dL Above Desirable: 100-129 mg/dL Borderline High: 130-159 mg/dL High: 160-189 mg/dL Very High: >=190 mg/dL ----ADDITIONAL INFORMATION---- LDL cholesterol calculated using the Palmer/NIH equation. Cholesterol, HDL, S 58 >=50 mg/dL 11/29/2022 10:36 AM CDT DTL Cholesterol, Non-HDL, Calculated 96 mg/dL 11/29/2022 10:36 AM CDT DTL Comment: ----REFERENCE VALUE---- Desirable: <130 mg/dL Above Desirable: 130-159 mg/dL Borderline High: 160-189 mg/dL High: 190-219 mg/dL Very High: > or =220 mg/dL Fasting (8 HR or more) Yes 11/29/2022 10:01 AM CDT DTL Blood (Blood, Venous) 11/29/2022 9:22 AM CDT 11/29/2022 10:01 AM CDT Vinod Kate M.D. LAB BLOOD ADD-ON [facility] [address] [place] [address], [facility] DTL [facility] [address] [place] [address] * (ABNORMAL) Basic Metabolic Panel (11/29/2022 9:22 AM CDT) Potassium, S 5.7(H) 3.6 - 5.2 mmol/L 11/29/2022 10:36 AM CDT DTL Sodium, S 143 135 - 145 mmol/L 11/29/2022 10:36 AM CDT DTL Chloride, S 107 98 - 107 mmol/L 11/29/2022 10:36 AM CDT DTL Bicarbonate, S 25 22 - 29 mmol/L 11/29/2022 10:36 AM CDT DTL Anion Gap 11 7 - 15 11/29/2022 10:36 AM CDT DTL BUN (Blood Urea Nitrogen), S 20 6 - 21 mg/dL 11/29/2022 10:36 AM CDT DTL Creatinine 1.06(H) 0.59 - 1.04 mg/dL 11/29/2022 10:36 AM CDT DTL Estimated GFR (eGFR) 55(L) >=60 mL/min/BSA 11/29/2022 10:36 AM CDT DTL Comment: Estimated GFR calculated using the 2020 CKD_EPI creatinine equation. Calcium, Total, S 10.6(H) 8.8 - 10.2 mg/dL 11/29/2022 10:36 AM CDT DTL Glucose, S 98 70 - 140 mg/dL 11/29/2022 10:36 AM CDT DTL Blood (Blood, Venous) 11/29/2022 9:22 AM CDT 11/29/2022 10:01 AM CDT Arely Solorzano APRN, C.N.P., M.S.N. LA B BLOOD ADD-ON [facility] [address] [place] [address], [facility] DTL [facility] [address] [place] [address] from Last 3 Months or Most Recently Relevant to Health Maintenance Care Teams Business Executive Relationship Specialty Start Date End Date Elsewhere, Pcp PCP - General Internal Medicine 04/26/21
--- OUTSIDE RECORDS SUMMARY | 2023-11-06 21:35 | XMS_ITS ---
Author Organization [facility] Address [address] [place] [address] Care Team Providers Care Higher Level Teaching Assistant Name Role Phone Unavailable Unavailable Unavailable Surgery Details Not on file Complications Check Surgery Details section. Procedure Estimated Blood Loss Check Surgery Details section. Procedure Findings Check Surgery Details section. Procedure Specimens Taken Check Surgery Details section.
--- OUTSIDE RECORDS SUMMARY | 2023-11-06 21:35 | XMS_ITS ---
Author Name Randy Wolfe Address Unknown Phone tel: Organization Unknown Address Unknown Phone tel: Care Team Providers Care Power Wheelchair Mechanic Name Role Phone Randy Wolfe Unavailable tel: Consultation Notes
--- OUTSIDE RECORDS SUMMARY | 2023-11-06 21:35 | XMS_ITS | Clinical Summary ---
Author Organization [facility] Address [address] [place] [address] Care Team Providers Care College Athlete Name Role Phone Elsewhere, Pcp Primary Care Provider Unavailabl e Source Comments Patient records contain information from all sites at [facility]. For routine questions regarding patient records, call [phone] during business hours, M-F 8:00 AM - 5:00 PM Central Time. Record requests for emergency care only can be directed to [phone] at any time.[facility] Allergies Active Allergy Reactions Criticality Noted Date [...] Units by mouth daily. 06/14/2020 Active vitamins A,C,X-jtqv-dbqljw (PRESERVISION AREDS) 7,160 Units-113 mg-100 Units per [...] (01/31/2021): Added automatically from request for surgery [id number] Mastectomy Status Post Bilateral 01/31/2021 Overview (01/31/2021): Added automatically from request for surgery [id number] Encounters Date Type Department Care Team Description 08/08/2023 2:30 PM CDT Comprehensive Visit Department of Neurology in [place], [place] [address] [place] [address] Megan Hameed M.D. Pain Nerve Dysesthetic 08/08/2023 7:53 AM CDT - 08/08/2023 11:59 PM CDT Hospital Encounter Department of Neurology in [place], [place] [address] [place] [address] Marlena Christian M.D. Pain Nerve Dysesthetic Discharge Disposition: Home or Self Care from Last 3 Months Immunizations Name Administration Dates Next Due H1N1 [...] PCP) Tdap 04/26/2021(Deferred: Patient decision - CURRENT) Family History Medical History Relation Name Comments Genetic disease Daughter Digna Valencia Chek 2 Other cancer Daughter Digna Valencia Glioblastoma Lung cancer Father Gen [facility] Lung cancer Father's Brother Anupam [facility] Alcohol abuse Maternal Grandfather Lavelle Teran Chon Colon cancer Maternal Grandmother Annie Chon Migraines Maternal Grandmother Annie Givens Colon cancer Mother Glenny [facility] Coronary artery disease Mother Glenny [facility] Hypertension Mother Glenny [facility] Migraines Mother Spencer [facility] Obesity Mother Spencer [facility] Cancer Mother's Brother due to pest icides Lung cancer Paternal Grandfather Greg Wyatt [facility] Diabetes Paternal Grandmother Michelle [facility] Breast cancer Sister 1 Sophie Aleman Obesity Sister 2 Leanna Kern Ovarian cancer Neg Hx Relation Name Status Comments Daughter Digna Valencia Father Gen [facility] Father's Brother Anupam Lira Maternal Grandfather Lavelle Teran Chon Maternal Grandmother Annie Borregose Mother Glenny [facility] Mother's Brother Paternal Grandfather Greg Wyatt [facility] Paternal Grandmother Michelle [facility] Sister 1 Sophie Aleman Sister 2 Leanna Kern Social History Tobacco Use Types Packs/Day Years [...] often do you attend chur ch or buddhism services? More than 4 times per year 12/28/2021 Do you belong to any clubs o r organizations such as anabaptism groups, unions, fraternal or athletic groups, or [...] care, and heating? Not very hard 01/14/2023 [facility] [place] [facility] Occup[facility] Health - Occupational Stress [...] your living situation today? I have a [facility] place to live 01/14/2023 Education Answer Date Recorded What is the highest level of school you have completed or the highest degree you have received? 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 [address] [place] [phone] 11/29/2023 7:15 AM CDT - 11/29/2023 9:32 AM CDT Surgery RST [facility] MAIN OR [address] [place] [address] Marlena Christian M.D. [address] [place] [phone] INJECTION FAT into mastectomy flaps; harvested from whole abdomen, flanks, medial thighs, knees, proceed as indicated 12/06/2023 9:30 AM CDT Office Visit Division of Plastic Surgery in [place], [place] [address] [place] [phone] Renetta Almonte APRN, C.N.P., D.N.P. [address] [place] [phone] Scheduled Procedures Name Priority Associated Diagnoses Date/Ti me INJECTION FAT Deformity Reconstructed Breast Lesion Lip 11/29/2023 7:15 AM CDT BIOPSY Deformity Reconstructed Breast Lesion Lip 11/29/2023 7:15 AM CDT Health Maintenance Due Date Last Done Comments CT Colonography 1948 Cologuard 1950 DTaP,Tdap,and Td Vaccines (1 - Tdap) 11/01/1967 Zoster Vaccines (1 of 2) 1998 Pneumococcal vaccine (65+ ye ars) (2 of 2 - PCV) 2013 12/01/2004, 07/29/2004, 02/12/2004 Depression Screening (Annual PHQ-2) 02/11/2023 Fall Risk Screen (Annual) 02/11/2023 COVID-19 Vaccine (2 - 2023-2 5 season) 2023 04/30/2020 RSV vaccine - (32-3 6 weeks) or 60+ years (1 - 1-dose 75+ series) 11/01/2023 Influenza Vaccine (#1) 2023 , 12/02/2020, 01/05/2019, Additional history exists Creatinine Level (Kidney Fun ction Test) 11/30/2023 11/29/2022, 11/24/2021, 10/17/2020, Additional history exists Office Visit for Blood Press ure Check / Re-check 11/30/2023 11/29/2022 Sodium Level 11/30/2023 11/29/2022, 11/19/2011 Potassium Level 12/01/2023 11/30/2022, 11/11, 11/19/2011 Fasting Glucose for Diabetes Screening 11/29/2025 11/29/2022, 11/19/2011 Lipid (Cholesterol) Screening 11/30/2027 11/29/2022, 11/19/2011 Colonoscopy 08/13/2028 08/14/2023, 12/13/2020 Colorectal Cancer Surveillance 08/13/2028 Hepatitis C Screening Completed 08/25/2004 Bone Density Scan (Osteoporo sis Screen) Discontinued 11/07/2020 Medical Devices Implanted Type Area Vulcanizer Rubber Plate Device Identifier Shelf Expiration Date Model / [...] ? Final Report Study Number: 2 [facility]G Correctional Officer: Yonas Cronin 127 or [phone] Referred by: MARLENA CHRISTIAN V. (127 or [phone]) Referred for: right leg pain Referral Code: [...] right lower limb. Rd Cronin (127 or [phone])/SMB NERVE CONDUCTIONS ??Record Rep ?? Normal ??Normal [...] Electromyography Final Report Study Number: 2 EMG Correctional Officer: Yonas Cronin 127 or [phone] Referred by: MARLENA CHRISTIAN V. (127 or [phone]) Referred for: right leg pain Referral Code: [...] right lower limb. Rd Cronin (127 or [phone])/SMB NERVE CONDUCTIONS Record Rep Normal Normal Distal [...] AM CDT Marlena Christian M.D. NEUROLOGY ORDERABLES EM[facility] * Potassium (11/30/2022 7:09 AM CDT) Potassium, P 4.3 3.6 - 5.2 mmol/L 11/30/2022 7:48 AM CDT METH Blood (Blood, Venous) 11/30/2022 7:09 AM CDT 11/30/2022 7:29 AM CDT Phuong Jordan M.D. LAB BLOOD ADD-ON [facility] [address] [place] [address], [facility] METH [facility] [address] [place] [address] * Lipid Panel (11/29/2022 9:22 AM CDT) Pathologist [facility] Triglycerides 108 mg/dL 11/29/2022 10:36 AM CDT [...] CDT Vinod Kate M.D. LAB BLOOD ADD-ON [facility] [address] [place] [address], [facility] [address] [place] [address] * (ABNORMAL) Basic Metabolic Panel (11/29/2022 9:22 AM CDT) Pathologist [facility] Potassium, S 5.7(H) 3.6 - 5.2 mmol/L [...] 9:22 AM CDT 11/29/2022 10:01 AM CDT Tim Woodard APRN.NMoyP., M.S.N. [place] B BLOOD ADD-ON [facility] [address] [place] [address], [facility] DTL [facility][note 2] [address] [place] [address] from Last 3 Months or Most Recently Relevant to Health Maintenance Care Teams College Athlete Relationship Specialty Start Date End Date Elsewhere, Pcp PCP - General Internal Medicine 04/26/21
--- OUTSIDE RECORDS SUMMARY | 2023-11-06 21:35 | XMS_ITS | Encounter Summary ---
Author Organization [facility] Address [address] [place] [address] Care Team Providers Care Washer Repairman Name Role Phone Elsewhere, Pcp Primary Care Provider Unavailabl e Reason for Visit * Outpatient (Routine) - Closed Specialty Diagnoses / Procedures Referred By Jenn delgado Referred To Contact Neurology Diagnoses Pain Nerve Dysesthetic Guerline Giron M.D. 200 [place] [address] [facility] Referral ID Status Reason Start Date Expiration Date Visits Re quested Visits Authorized [id number] Closed 08/05/2023 02/03/2025 1 1 Encounter Details Date Type Department Care Team (Latest Contact Info) Description 08/08/2023 2:30 PM CDT Comprehensive Visit Department of Neurology in [place], [place] [address] [place] [phone] Megan Hameed M.D. [address] [place] [phone] Pain Nerve Dysesthetic Social History Tobacco Use [...] 12/28/2021 How often do you attend chur or restorationism services? More than 4 times per year 12/28/2021 Do you belong to any clubs o r organizations such as methodist groups, unions, fraternal or athletic groups, or [...] care, and heating? Not very hard 01/14/2023 [facility] of Occupat ional Health - Occupational Stress [...] your living situation today? I have a [facility] place to live 01/14/2023 Education Answer Date Recorded What is the highest level of school you have completed or the highest degree you have received? 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 - 08/08/2023 2:30 PM CDT Images from the original note were not included. SUBJECTIVE Referring Provider: Guerline Giron M.D. CHIEF COMPLAINT / REASON FOR VISIT Right thigh numbness HISTORY OF PRESENT ILLNESS Moy Lira is a 72 year-old woman referred by Dr. Giron originally for evaluation of right thigh numbness, but during the appointment she noted additional concerns regarding tinnitus and visual changes that she wanted to discuss during the visit today. I was able to review relevant electronic medical records. 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 She then underwent breast micro fat grafting from her abdomen as part of her breast reconstructive surgery in December of 2021,with additional augmentation in November of 2022. Prior to the November 2022 procedure described above, she had described right lower quadrant pain that had been present for some months. The possibility of a right lateral femoral cutaneous nerve entrapment from her prior procedure was raised, and during the procedure she also underwent decompression of the right lateral femoral cutaneous nerve. It was noted in the operative report that the right lateral femoral cutaneous nerve and its branches were large proximally and thin in a trophic inferiorly, and that they were released from the type fascia and external oblique muscle bands. After waking from surgery, she noted new burning and tingling affecting the lateral aspect of her right thigh. She is also noted that with palpation of the affected area in the mid thigh she will have extra sensations emanate from the point of contact with her skin. The symptoms have persisted since then without any change. She has not noted any lower limb weakness or sensory loss outside of thisstated distribution. She also mentioned issues with longstanding tinnitus, which is somewhat bothersome to her. She has not sure if she has experienced any hearing loss, although notes that in conversation especially in crowded environments she may have trouble catching certain words. She has no history of exposures toloud sounds. She has not had any audiometry testing to date. In terms of visual symptoms, she is first started experiencing these while receiving chemotherapy for her breast cancer in 2004. Back then, she would get the occasional distortion in her central visual field bilaterally that would then spiral into a moving arc from that point and shift gradually over 20-25 minutes out of the field of vision before resolving. More recently, these have been occurring more frequently. She may get several days in a row in which she has the symptoms occur daily, andthen other times where weeks go by without any symptoms. After the visual symptoms resolve she may get a mild on occipital headache. This has not been associated with photophobia/phonophobia or nausea /vomiting. She does note a history of headaches with migrainous features around 20-28 years of age that then improved. She does not recall having any visual aura with these. Notes no issues with sleep apnea. Evaluation: Pertinent evaluation includes EMG/NCS from earlier today, which showed isolated abnormalities to the extensor digitorum brevis muscle, which could be related to local trauma to the muscle or nerve branch innervating the muscle. There was no electrodiagnostic evidence of a peripheral neuropathy or aright lumbosacral radiculopathy. OBJECTIVE PHYSICAL EXAM There were no vitals filed for this visit. Neuro: Neurology Scorecard Lower limb assessment Gait: Normal Tandem Gait: Able Walk on heels: Able Walk on toes: Able Arise from chair: Able Romberg present: Absent Foot/Ankle deformities: Absent Associated conditions Tremor: Absent Limb ataxia: Absent Scoring, muscle weakness (* NIS) The Neuropathy Impairment Scoring System (NIS) strength: 0=normal; 1=25% weak (MRC equivalent= 5-);2=50% weak (MRC equivalent 4+); 3=75% weak (MRC equivalent 4-); 3.25%=movement against gravity (MRCequivalent 3); 3.5=movement, gravity eliminated (MRC equivalent 2); 3.75; flicker of movement (MRC equivalent 1) 4=complete paralysis (MRC equivalent 0). Right Left Deficit Deficit Visual Acuity normal Fundus normal 0 Pupil light reflex 0 -2 Hearing loss -2 Right Cranial Left Strength Strength 0 * 3rd nerve 0 0 4th nerve 0 0 * 6th nerve 0 0 * Facial weakness 0 0 Temporal-Masseter 0 0 Forehead 0 0 Orbicularis Oculi 0 0 Orbicularis Claribel 0 0 * Palate weakness 0 0 Sternocleidomastoid 0 0 Trapezius 0 0 * Tongue weakness 0 Right Cervical Left Strength Strength 0 * Neck flexion 0 Neck extension Infraspinatus Supraspinatus Pectoralis 0 * Deltoid 0 0 * Elbow flexion 0 0 * Brachioradialis 0 0 * Elbow extension 0 0 * Wrist extension 0 0 * Wrist flexion 0 Supinator Pronator 0 Finger extension 0 0 * Finger flexion 0 0 * Thumb abduction 0 Thumb flexion 0 * Finger spread 0 0 Hypothenar 0 0 Abdominal muscles 0 0 * Respiratory 0 Right Lumbosacral Left Strength Strength 0 * Hip flexion 0 0 * Hip extension 0 Hip internal rotation 0 Hip adduction 0 0 Hip abduction 0 0 * Knee extension 0 0 * Knee flexion 0 0 * Ankle dorsiflexors 0 0 * Ankle plantar flexors 0 0 * Toe extensors 0 0 * Toe flexors 0 0 Extensor hallicus 0 0 Ankle evertors 0 0 Ankle invertors 0 Scoring, reflexes (* NIS) NIS (Normal= 0 or above 0; Reduced= -1 to -3; Absent=-4) Right Reflexes Left 0 * Biceps brachii 0 0 * Brachioradialis 0 0 * Triceps brachii 0 0 Jorge 0 0 * Quadriceps femoris 0 0 * Gastroc. soleus 0 0 Clonus 0 0 Plantar response 0 Scoring, sensation (* NIS) NIS (Normal= 0 or above 0; Reduced= -1 to -3; Absent=-4) Right Sensation - Index finger Left 0 * Touch-pressure 0 0 * Pin-prick 0 0 Heat-pain 0 Cold-sensation 0 * Vibration 0 0 * Joint position 0 Right Sensation - Great Toe Left 0 * Touch-pressure 0 0 * Pin-prick 0 0 Heat-pain 0 Cold-sensation 0 * Vibration 0 0 * Joint position 0 SUMMED SCORES (0 is normal) Strength (Range) Reflex (Range) Sensation (Range) Total Score (Range) Total Scores 0 (0-376) 0 (0-64) 0 (0-96) 0 (0-536) Adult Image ASSESSMENT / PLAN #1 Right lateral femoral cutaneous neuropathy #2 Tinnitus #3 Scintillating scotomas, migraine equivalent Ms. Lira's examination shows a patch of decreased sensation over the right thigh following the distribution of the lateral femoral cutaneous nerve. Symptoms in this distribution were first noted after undergoing lateral femoral cutaneous neurolysis in November of 2022 for abdominal lower quadrant pain without improvement since that time. Discussed that at this point it is unclear what the degree of recovery for her symptoms will be. Generally, nerve reinnervation happens very gradually and it may take at least 1 to 2 years to see what the extent of reinnervation will be and it is possible she may have residual symptoms related to this. At this point, the symptoms are bothersome. Discussed considering a trial of a neuromodulatory medication like gabapentin to lessen the burning and tinglingsensations along with a skin hypersensitivity on palpation of the affected area. Further details regarding a trial of this are outlined below. She had mild hearing loss on her exam on finger rub which may suggest a component of sensorineural hearing loss, which is one of the more common causes of tinnitus. It would be reasonable for her to pursue audiometry locally to evaluate for this further and see whether she may benefit from hearing aids. As for the visual symptoms, her description is classic for scintillating scotomas, which would be considered a migraine equivalent. It sounds like she had a remote history of migraines without aura in her 20-30s that then improved. She could consider trying to optimize lifestyle factors like ensuring adequate sleep, reducing caffeine intake, weight loss, or if not done recently a screening for sleep-disordered breathing with overnight oximetry or sleep evaluation locally. If this is not helpfulreducing the frequency of the symptoms, then she could consider a trial of verapamil under the guidance of her local care team given concurrent use of anti-hypertensive medications. Recommendations: For the lateral femoral cutaneous neuropathy symptoms: Gabapentin is typically started at a dose of 300 mg at bedtime and increased each week by 300 mg iris three times daily fashion up to a maximum dose of 3600 mg/day. Side effects may include leg swelling, drowsiness, or dizziness/imbalance but this medication is generally well tolerated. If this is not helpful, the gabapentin could be tapered off and another option would be pregabalin starting at a dose of 75 mg daily and increasing weekly in a twice daily dosing fashion up to a maximum dose of 150 mg twice daily. Side effects are similar to gabapentin. Other medication alternatives include duloxetine dosed at 30 mg daily, which is increased after oneweek to 60 mg once daily (or 30 mg twice daily). Patients generally feel unwell with symptoms of stomach upset and nausea for the first several weeks after starting this medication, but these side effects generally fade away after that point. If a medication trial for scintillating scotomas is desired: Verapamil (immediate release) startingat a dose of 40 mg three times daily with adjustment every few weeks as needed and tolerated up to a maximum dose of 480 mg/day in 3 divided doses. If a dose is reached that is helpful for reducing the frequency of symptoms, then the immediate release can be transitioned to an extended release formulation with equivalent once daily dosing. Our practice model is consultative in nature and recommendations including medication trials shouldbe shared locally. I have completed my evaluation and made my recommendations. The patient will follow up with their primary provider. Total time: 63 minutes documented in this encounter Plan of Treatment Upcoming Encounters Date Type Department Care Team (Latest Contact Info) Description 11/29/2023 7:15 AM CDT Hospital Encounter [facility] 01 4 AM ADMIT [address] [place] [phone] Guerline Giron M.D. [address] [place] [phone] 11/29/2023 7:15 AM CDT - 11/29/2023 9:32 AM CDT Surgery [facility] MAIN OR [address] [place] [address] Guerline Giron M.D. [address] [place] [phone] INJECTION FAT into mastectomy flaps; harvested from whole abdomen, flanks, medial thighs, knees, proceed as indicated 12/06/2023 9:30 AM CDT Office Visit Division of Plastic Surgery in [place], [place] [address] [place] [phone] Renetta Almonte APRN, C.N.P., D.N.P. [address] [place] [phone] Scheduled Procedures Name Priority Associated Diagnoses Date/Ti me INJECTION FAT Deformity Reconstructed Breast Lesion Lip 11/29/2023 7:15 AM CDT BIOPSY Deformity Reconstructed Breast Lesion Lip 11/29/2023 7:15 AM CDT documented as of this encounter Visit Diagnoses Diagnosis Pain Nerve Dysesthetic Deformity Reconstructed Breast Lesion Lip documented in this encounter Care Teams Washer Repairman Relationship Specialty Start Date End Date Elsewhere, Pcp PCP - General Internal Medicine 04/26/21 documented as of this encounter
--- OUTSIDE RECORDS SUMMARY | 2023-11-06 21:35 | XMS_ITS | Encounter Summary ---
Author Organization [facility] Address [address] [place] [address] Care Team Providers Care Pot Fisher Name Role Phone Elsewhere, Pcp Primary Care Provider Unavailabl e Encounter Details Date Type Department Care Team (Late st Contact Info) Description 08/02/2023 Ancillary Procedure Department of Plastic and Reconstructive Surgery Social History Tobacco Use Types Packs/Day Years [...] often do you attend chur ch or shinto services? More than 4 times per year 12/28/2021 Do you belong to any clubs o r organizations such as jew groups, unions, fraternal or athletic groups, or [...] care, and heating? Not very hard 01/14/2023 [facility] of Occupat ional Health - [...] your living situation today? I have a [facility] place to live 01/14/2023 Education Answer Date Recorded What is the highest level of school you have completed or the highest degree you have received? 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 [address] [place] [phone] 11/29/2023 7:15 AM CDT - 11/29/2023 9:32 AM CDT Surgery [facility] MAIN OR [address] [place] [phone] Guerline Giron M.D. [address] [place] [phone] INJECTION FAT into mastectomy flaps; harvested from whole abdomen, flanks, medial thighs, knees, proceed as indicated 12/06/2023 9:30 AM CDT Office Visit Division of Plastic Surgery in [place], [place] [address] [place] [phone] Renetta Almonte APRN, C.N.P., D.N.P. [address] [place] [phone] Scheduled Procedures Name Priority Associated Diagnoses Date/Ti me INJECTION FAT Deformity Reconstructed Breast Lesion Lip 11/29/2023 7:15 AM CDT BIOPSY Deformity Reconstructed Breast Lesion Lip 11/29/2023 7:15 AM CDT documented as of this encounter Procedures Procedure Name Priority Date/Time Associated Diagnosis Comments PLASTIC AND RECON SURGERY IMAGE EXAM Routine 08/02/2023 12:00 AM CDT documented in this encounter Results * Breast Fat Grafting-Plastic And Recon Surgery Image Exam (08/02/2023 12:00 AM CDT) Narrative [facility] - 08/02/2023 2:19 PM CDT This order has been created and auto-finalized to support the import of images acquired without order. The clinical documentation to support these images can be found on the encounter that produced images. Provider Not In System IMG NON RAD IMAGI NG PROCEDURES [facility] NA documented in this encounter Visit Diagnoses Not on filedocumented in this encounter Care Teams Pot Fisher Relationship Specialty Start Date End Date Elsewhere, Pcp PCP - General Internal Medicine 04/26/21 documented as of this encounter
--- OUTSIDE RECORDS SUMMARY | 2023-11-06 21:35 | XMS_ITS | Encounter Summary ---
Author Organization [facility] Address [address] [place] [address] Care Team Providers Care Rnfa Name Role Phone Elsewhere, Pcp Primary Care Provider Unavailabl e Reason for Referral * Outpatient (Routine) - Closed Specialty Diagnoses / Procedures Referred By Jenn delgado Referred To Contact Diagnoses Pain Nerve Dysesthetic Procedures [facility] Marlena Giron M.D. 200 [place] [phone] [facility] Referral ID Status Reason Start Date Expiration Date Visits Re quested Visits Authorized [id number] Closed 08/05/2023 08/04/2024 1 1 Reason for Visit * Outpatient (Routine) - Closed Specialty Diagnoses / Procedures Referred By Jenn delgado Referred To Contact Diagnoses Pain Nerve Dysesthetic Procedures [facility]G Marlena Giron M.D. [address] [place] [address] [facility] Referral ID Status Reason Start Date Expiration Date Visits Re quested Visits Authorized [id number] Closed 08/05/2023 08/04/2024 1 1 Encounter Details Date Type Department Care Team (Latest Contact Info) Description 08/08/2023 7:53 AM CDT - 08/08/2023 11:59 PM CDT Hospital Encounter Department of Neurology in [place], [place] [address] [place] [phone] Marlena Giron M.D. 200 [place] [phone] Pain Nerve Dysesthetic Discharge Disposition: Home or Self Care Social History Tobacco Use Types Packs/Day Years [...] How often do you attend chur or advent services? More than 4 times per year 12/28/2021 Do you belong to any clubs o r organizations such as yarsani groups, unions, fraternal or athletic groups, or [...] care, and heating? Not very hard [facility] - [facility]ational Stress Questionnaire Answer Date Recorded [...] your living situation today? [facility] 01/14/2023 Education Answer Date Recorded What is the highest level of school you have completed or the highest degree you have received? 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 11/30/2022 biotin 1 mg tablet Take 5,000 mcg by mouth every morning. calcium carb/magnesium ox,carb (AMMY-MAG ORAL) Take 1 tablet by mouth Medrol Dose Pack scheduling ONLY. 1000/500 cholecalciferol (VITAMIN D3) 50 mcg (2,000 Unit) capsule Take 1 capsule by mouth daily. 11/23/2013 co-enzyme Q-10 (CO Q-10) 100 mg capsule Take 100 mg by mouth every morning. ketoconazole (NIZORAL) 2 % creamIndications:Intertri go Apply 1 Application topically 2 (two) times a day. Apply to groin/intertrigo areas twice a day. 15 g 11/29/2022 lisinopriL (PRINIVIL,ZESTRIL) 10 mg tablet Take 10 mg by mouth every morning. 10/18/2020 LUTEIN ORAL Take 1 capsule by mouth as needed. medium chain triglycerides (MCT OIL ORAL) Take 1 each by mouth as needed. ONE SCOOPFUL metoprolol tartrate (LOPRESSOR) 25 mg tablet Take 1 tablet by mouth 2 (two) times a day. 03/23/2021 multivitamin-eye (PreserVision Lutein) 226 mg-200 Unit-5 mg-0.8 mg capsule Take 1 capsule by mouth every morning. petrolatum jelly, VASELINE, Apply topically 3 (three) times a day. Apply to lower lip three times daily and as needed. 106 g 1 11/30/2022 rosuvastatin (CRESTOR) 10 mg tablet Take 10 mg by mouth every morning. 10/18/2020 SELENIUM ORAL Take 200 mcg by mouth every morning. timolol (TIMOPTIC) 0.5 % ophthalmic solution Administer 1 drop into both eyes daily. triamcinolone (KENALOG) 0.1 % ointmentIndications:Atrop hy Vulva Apply 1 Application topically 2 (two) times a day as needed for rash. Apply to vulva twice a day as needed. 180 g 3 11/29/2022 TURMERIC ORAL Take 1,000 mg by mouth every morning. vitamin B complex (VITAMIN B-100 COMPLEX ORAL) Take 1 capsule by mouth every morning. vitamin E 180 mg (400 Unit) capsule Take 400 Int'l Units by mouth daily. 06/14/2020 vitamins A,C,Z-vzzj-mkrfml (PRESERVISION AREDS) 7,160 Units-113 mg-100 Units per tablet Take 1 tablet by mouth daily. documented as of this encounter Plan of Treatment Upcoming Encounters Date Type Department Care Team (Latest Contact Info) Description 11/29/2023 7:15 AM CDT Hospital Encounter [facility] 01 4 AM ADMIT [address] [place] [phone] Marlena Giron M.D. [address] [place] [phone] 11/29/2023 7:15 AM CDT - 11/29/2023 9:32 AM CDT Surgery [facility] OR [address] [place] [address] Marlena Giron M.D. [address] [place] [phone] INJECTION FAT into mastectomy flaps; harvested from whole abdomen, flanks, medial thighs, knees, proceed as indicated 12/06/2023 9:30 AM CDT Office Visit Division of Plastic Surgery in [place], [place] [address] [place] [phone] Renetta Almonte APRN, C.N.P., D.N.P. [address] [place] [phone] Scheduled Procedures Name Priority Associated Diagnoses Date/Ti me INJECTION FAT Deformity Reconstructed Breast Lesion Lip 11/29/2023 7:15 AM CDT BIOPSY Deformity Reconstructed Breast Lesion Lip 11/29/2023 7:15 AM CDT documented as of this encounter Procedures Procedure Name Priority Date/Time Associated Diagnosis Comments EMG Routine 08/08/2023 7:53 AM CDT Pain Nerve Dysesthetic documented in this encounter Results * EMG (08/08/2023 7:53 AM CDT) 08/08/2023 8:00 AM CDT Narrative EMG - 08/08/2023 9:40 AM CDT Table formatting from the original result was not included. 08-Aug-2023 ? Electromyography ? Final Report Study Number: 2 EMG [employer] W[employer]cker: Yonas Cronin 127 or [phone] Referred by: MARLENA GIRON V. (127 or [phone]) Referred for: right leg pain Referral Code: [...] right lower limb. Rd Cronin (127 or [phone])/SMB NERVE CONDUCTIONS ??Record Rep ?? Normal ??Normal [...] Electromyography Final Report Study Number: 2 EMG [employer] W[employer]cker: Yonas Cronin 127 or [id number] Referred by: MARLENA GIRON V. (127 or [phone]) Referred for: right leg pain Referral Code: [...] right lower limb. Rd Cronin (127 or [phone])/SMB NERVE CONDUCTIONS Record Rep Normal Normal Distal [...] documented in this encounter Visit Diagnoses Diagnosis Pain Nerve Dysesthetic Deformity Reconstructed Breast Lesion Lip documented in this encounter Care Teams Rnfa Relationship Specialty Start Date End Date Elsewhere, Pcp PCP - General Internal Medicine 04/26/21 documented as of this encounter
--- OUTSIDE RECORDS SUMMARY | 2023-11-06 21:36 | XMS_ITS | Encounter Summary ---
Author Organization [facility] Address [address] [place] [address] Care Team Providers Care Brush Loader And Handle Attacher Name Role Phone Elsewhere, Pcp Primary Care Provider Unavailabl e Encounter Details Date Type Department Care Team (Late st Contact Info) Description 06/11/2005 Historical Ophthalmology [facility] Todd Vivar M.D. Social History Tobacco Use Types Packs/Day Years Used Date Smoking Tobacco: Never Assessed Sex and Gender Information Value Date Recorded Sex Assigned at Female 12/28/2021 3:28 PM SAS ADMINISTRATOR Gender Identity Female 10/06/2021 9:35 AM CDT Sexual Orientation Straight 10/06/2021 9: 35 AM CDT documented as of this encounter Progress Notes * Todd Vivar M.D. - 06/11/2005 12:00 AM CDT Eye General CHIEF COMPLAINT Return for Posterior vitreous separation right>left HISTORY OF PRESENT ILLNESS Return for Posterior vitreous separation right>left. Intermittent light flashes right eye. Pulsations right eye. Floaters right >left. Denies diplopia and pain. IMPRESSION / REPORT / PLAN #1 Posterior vitreous separation, symptoms right more than left No retinal abnormalities seen Reevaluate in 3 months or PRN DIAGNOSIS #1 Posterior vitreous separation, symptoms right more than left CDM Reports - EYEGEN Id: [id number] Status: Fnl documented in this encounter Plan of Treatment Upcoming Encounters Date Type Department Care Team (Latest Contact Info) Description 11/29/2023 7:15 AM CDT Hospital Encounter [facility] 01 4 AM ADMIT [address] [place] [phone] Guerline Giron M.D. [address] [place] [phone] 11/29/2023 7:15 AM CDT - 11/29/2023 9:32 AM CDT Surgery [facility] [address] [place] [phone] Guerline Giron M.D. [address] [place] [phone] INJECTION FAT into mastectomy flaps; harvested from whole abdomen, flanks, medial thighs, knees, proceed as indicated 12/06/2023 9:30 AM CDT Office Visit Division of Plastic Surgery in [place], [place] [address] [place] [phone] Renetta Almonte APRN, C.N.P., D.N.P. [address] [place] [phone] Scheduled Procedures Name Priority Associated Diagnoses Date/Ti [...] documented as of this encounter Care Teams Brush Loader And Handle Attacher Relationship Specialty Start Date End Date Elsewhere, Pcp PCP - General Internal Medicine 04/26/21 documented as of this encounter
--- OUTSIDE RECORDS SUMMARY | 2023-11-06 21:36 | XMS_ITS | Encounter Summary ---
Author Organization [facility] Address [address] [place] [address] Care Team Providers Care Rubber Thread Spooler Name Role Phone Elsewhere, Pcp Primary Care Provider Unavailabl e Encounter Details Date Type Department Care Team (Late st Contact Info) Description 05/09/2006 Historical Ophthalmology [facility] Yonas Monterroso O.D., Ph.D. Social History Tobacco Use Types Packs/Day Years Used Date Smoking Tobacco: Never Assessed Sex and Gender Information Value Date Recorded Sex Assigned at Female 12/28/2021 3:28 PM EDUCATOR SENIOR CLINICAL Gender Identity Female 10/06/2021 9:35 AM CDT Sexual Orientation Straight 10/06/2021 9: 35 AM CDT documented as of this encounter Progress Notes * Yonas Monterroso O.D., Ph.D. - 05/09/2006 12:31 PM CDT Eye General CHIEF COMPLAINT Yearly eye exam / Recheck Post Vitreous Separation HISTORY OF PRESENT ILLNESS In January - increase floaters - left eye. Right eye has had floaters since January,.Intermittent flashes both eyes for past two years. Dry eyes. Needs to blink to see clearly with both eyes, distance and near. Month ago woke up with right eye being red. Lasted about a week. Patient denies ocular pain. Denies diplopia. Notes a pulsation in left eye temporal to fixation that pulsates with heart beat. In December,, right eye was very irritated by swimming pool incident, something in water IMPRESSION / REPORT / PLAN #1 Posterior vitreous separation, symptoms right more than left No retinal abnormalities seen #2 Anterior basement membrane dystrophy #3 No Plaquenil retinopathy RTC 1 yr or PRN DIAGNOSIS #1 Posterior vitreous separation, symptoms right more than left #2 Anterior basement membrane dystrophy #3 No Plaquenil retinopathy CDM Reports - EYEGEN Id: [id number] Status: Fnl documented in this encounter Plan of Treatment Upcoming Encounters Date Type Department Care Team (Latest Contact Info) Description 11/29/2023 7:15 AM CDT Hospital Encounter [facility] 01 4 AM ADMIT [address] [place] [phone] Guerline Giron M.D. [address] [place] [phone] 11/29/2023 7:15 AM CDT - 11/29/2023 9:32 AM CDT Surgery [facility] MAIN OR [address] [place] [phone] Guerline Giron M.D. [address] [place] [phone] INJECTION FAT into mastectomy flaps; harvested from whole abdomen, flanks, medial thighs, knees, proceed as indicated 12/06/2023 9:30 AM CDT Office Visit Division of Plastic Surgery in [place], [place] [address] [place] [phone] Renetta Almonte APRN, C.N.P., D.N.P. [address] [place] [phone] Scheduled Procedures Name Priority Associated Diagnoses Date/Ti [...] documented as of this encounter Care Teams Rubber Thread Spooler Relationship Specialty Start Date End Date Elsewhere, Pcp PCP - General Internal Medicine 04/26/21 documented as of this encounter
--- OUTSIDE RECORDS SUMMARY | 2023-11-06 21:36 | XMS_ITS | Encounter Summary ---
Author Organization [facility] Address [address] [place] [address] Care Team Providers Care Radiologic Technology Program Director Name Role Phone Elsewhere, Pcp Primary Care Provider Unavailabl e Encounter Details Date Type Department Care Team (Late st Contact Info) Description 03/16/2005 Historical Ophthalmology [facility] Todd Vivar M.D. Social History Tobacco Use Types Packs/Day Years Used Date Smoking Tobacco: Never Assessed Sex and Gender Information Value Date Recorded Sex Assigned at Female 12/28/2021 3:28 PM PHOTOENGRAVING HELPER Gender Identity Female 10/06/2021 9:35 AM CDT Sexual Orientation Straight 10/06/2021 9: 35 AM CDT documented as of this encounter Progress Notes * Todd Vivar M.D. - 03/16/2005 12:00 AM CST Eye General CHIEF COMPLAINT Flashes and floater HISTORY OF PRESENT ILLNESS Light flashes accompanied with floaters, right eye, since 12/22/04, constantly. Patient noted flashes, right laterally, (mariana-circler) more apparent at night. Patient noted visual disturbance, similar to a sheer cherri in the line of vision, which never improves. Patient compares vision similar to mono-vision. Blurred vision, right eye, x 12 weeks, constantly. Patient noted slight pressure, upperright eyelid, x 12 weeks. History of migraines, last migraine was 08/24/04. Difficulty with night vision, x 12 weeks. Denies visual concern with the left eye. Notes occasional floaters with the left eye. Patient denies flashes of light or diplopia with either eyes. Recently underwent chemotherapy from August-November 03/2005,for breast cancer 07/16. IMPRESSION / REPORT / PLAN #1 Posterior vitreous separation, symptoms right more than left No retinal abnormalities seen Reevaluate in 3 months or PRN DIAGNOSIS #1 Posterior vitreous separation, symptoms right more than left CDM Reports - EYEGEN Id: [id number] Status: Fnl documented in this encounter Plan of Treatment Upcoming Encounters Date Type Department Care Team (Latest Contact Info) Description 11/29/2023 7:15 AM CDT Hospital Encounter [facility] 01 4 AM ADMIT [address] [place] [phone] Guerline Giron M.D. [address] [place] [phone] 11/29/2023 7:15 AM CDT - 11/29/2023 9:32 AM CDT Surgery [facility] MAIN OR [address] [place] [phone] Guerline Giron M.D. [address] [place] [phone] INJECTION FAT into mastectomy flaps; harvested from whole abdomen, flanks, medial thighs, knees, proceed as indicated 12/06/2023 9:30 AM CDT Office Visit Division of Plastic Surgery in [place], [place] [address] [place] [phone] Renetta Almonte APRN, C.N.P., D.N.P. [address] [place] [phone] Scheduled Procedures Name Priority Associated Diagnoses Date/Ti [...] documented as of this encounter Care Teams Radiologic Technology Program Director Relationship Specialty Start Date End Date Elsewhere, Pcp PCP - General Internal Medicine 04/26/21 documented as of this encounter
[2023-11-06 21:47] LABS: Chloride* 102 mmol/L (96-114); Potassium* 4.1 mmol/L (3.6-5.1); Sodium* 135 mmol/L (135-149)
[2023-11-06 21:50] LABS: Anion Gap 8 mEq/L (7-15); Blood Urea Nitrogen* 13 mg/dL (7-30); Carbon Dioxide* 25 mmol/L (20-32); Est. Creatinine Clearance* 41.97; Estimated Glomerular Filt Rate 59 ml/min
[2023-11-06 21:51] LABS: Alkaline Phosphatase* 90 U/L (40-150); Aspartate Amino Transferase* 25 U/L (12-35); Bilirubin Direct* 0.3 mg/dL (0.0-0.5); Bilirubin Total* 1.2 mg/dL (0.1-1.5); Calcium* 9.3 mg/dL (8.4-10.6); Glucose* 138 mg/dL (60-115); Lipase* 39 U/L (23-300); Total Protein* 6.8 g/dL (6.0-8.3)
[2023-11-06 21:52] LABS: Alanine Aminotransferase* 18 U/L (4-35)
[2023-11-06 21:54] LABS: C Reactive Protein* 6.1 mg/dL (0.5-1.0)
[2023-11-06 22:05] VITALS: BP 124/62; PULSE 81; RESP 16; O2SAT 97
[2023-11-06 22:06] LABS: Appearance Urine Cloudy (Clear); Bilirubin Urine 1+ (Negative); Blood Urine 3+ (Negative); Color Urine Yellow (Yellow); Glucose Urine Negative (Negative); Ketones Urine 3+ (Negative); Leukocyte Esterase Urine 3+ (Negative); Nitrite Urine Positive (Negative); Protein Urine 3+ (Negative); Specific Gravity Urine 1.025 (1.000-1.030); Urobilinogen Urine 0.2 (0.2-1.0)
[2023-11-06 22:07] LABS: Procalcitonin* 0.07 ng/mL (<0.50)
[2023-11-06] MEDS: cefTRIAXone 1 GM in 0.9 % SODIUM CHLORIDE Mini-bag 100 ML IVPB (22:25)
--- NOTE | 2023-11-06 22:46 | P.IMHP_ITS ---
Hospitalist- H&P: HPI History of Present Illness Date Seen: 11/06/23 Chief complaint: Pain, frequency, urgency, nausea Narrative: ADMISSION HISTORY AND PHYSICAL - HOSPITALIST Chief Complaint: Flank pain, dysuria, frequency and urgency. 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 She has a history of hypertension and obesity. She has a history of breast cancer, in remission for years. Status post bilateral mastectomies. She has had kidney stones with UTI in the past. With the onset of flank pain she thought this was likely happening again. confirmed ED HPI ... Patient is a 73-year-old woman who says that over the weekend she developed pain in her right flank which has gotten progressively worse, she now has pain in her right abdomen as well. She has had nausea, no fever that she knows of but she says she felt warm last night. She does note that she has had dysuria frequency and urgency also since the weekend. She has been other overnight every hour going to the bathroom. She has not noted blood in her urine. She does have a history of kidney stones per her report. She denies abdominal surgeries. Takes lisinopril and metoprolol for high blood pressure, denies other medical history. Today she has had no appetite, she says she has been drinking water. She lists allergies to Toradol and morphine, she says when she had that kidney stone years ago they gave her both of them and they cause some kind of clenching sensation in her chest. She says they then used Dilaudid instead and she eventually passed stone on her own. She did not need any specific treatment for an allergic reaction. She does not smoke or drink. ER COURSE: Abdomen pelvis CT with contrast. Fluids. Ceftriaxone. Labs. CODE STATUS: Full code EMERGENCY CONTACT PLAN: Suzie Sierra Rel To Pat Daughter Cell I've updated the PFSH, medications and allergies in the Expanse tabs. INVESTIGATIONS: LABS/MICRO/ECG/IMAGING T-max 99.8? F Initial blood pressure 99/63, up to 124/62 Pulse 80 Respiratory rate 14 to 16 Pulse ox 93-97 on room air 97.9 kg CBC reflects an elevated white blood cell count 16 with 88% neutrophils. Platelet count 571. Hemoglobin 14.7 Normal electrolytes, normal renal function. GFR 59. Glucose 138. Normal lactate. Normal procalcitonin, lipase. CRP mildly elevated at 6.1. LFTs normal. Cloudy urine with 3+ protein, 3+ ketones, positive nitrite, positive bilirubin, 3+ leukocyte cecil. No micro given small sample size. Urine culture is pending. Blood culture x1 pending CT abdomen pelvis with contrast 1. There are no visualized renal or ureteral calculi, and no hydroureteronephrosis. Of note, evaluation of the distal ureters is somewhat limited by artifact from right total hip arthroplasty. 2. There is nonspecific bilateral periureteral fat stranding, which may be related to age related changes, though can be seen in the setting of an ascending urinary tract infection. Consider correlation with urinalysis. 3. Asymmetric left chest wall soft tissue thickening and stranding near the partially visualized left inferior breast. Correlation with physical examination, and prior mammographic results (if available), is recommended. 4. Right adrenal nodule measures 1.7 cm and approximately 21 Hounsfield units, and is indeterminate on this single-phase CT. This could be further characterized with a nonemergent adrenal protocol CT. REVIEW OF SYSTEMS: 12-point ROS completed with patient and negative unless otherwise stated in HPI or below. PHYSICAL EXAM: CONSTITUTIONAL: Conversive, good historian. A/O. Knows setting and context. VITAL SIGNS: see record. HEENT: Normocephalic, atraumatic. PERRL, EOMI, conjunctivae pink, no scleral icterus. Ears and nose externally normal. Pharynx normal. NECK: No JVD. No carotid bruit, no thyromegaly, no adenopathy. CHEST: Clear to auscultation bilaterally. Chest wall reveals evidence of a bilateral mastectomy with fat grafting. No concerning findings on the left breast. HEART: S1 and S2 normal. No harsh murmurs. Edema minimal MUSCULOSKELETAL: No gross joint deformity or swelling. Mild right CVA tenderness NEURO: Cranial nerves intact. Grossly intact. No asymmetric findings. SKIN: No rashes, petechiae, concerning changes PSYCHIATRIC: Euthymic. ADMIT TO MEDSURG: FLOOR CARE DVT: SCDs, short stay GI: PO intake Time spent: Today I spent 75 minutes seeing the patient, discussing the patient with ER staff, reviewing Expanse and EPIC notes/diagnostics, discussing the care plan with our care time that includes social work, PT/OT, pharmacy, RT, fci and documenting my impressions and plan in the medical record. [facility] Medical History (Updated 11/06/23 @ 23:35 by Anastasia Lewis MD) Hypertension ?I10 - Essential (primary) hypertension (ICD-10) Surgical History (Updated 11/06/23 @ 22:58 by Anastasia Lewis MD) History of total right hip arthroplasty ?Z96.641 - Presence of right artificial hip joint (ICD-10) Social History (Updated 11/06/23 @ 23:28 by Anastasia Lewis MD) Narrative: from [place], [place] - here in [place] - visiting grandchild and helping with her late daughter's estate. 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, - lives alone nonsmoker, rare social alcohol Smoking Status: Never smoker How often do you have a drink containing alcohol: monthly or less AUDIT-C Alcohol total score: 1 Non-prescribed substance use: denies use Meds Home Medications and Allergies Home Medications ?Medication ?Instructions ?Recorded ?Confirmed ?Type lisinopril 10 mg tablet 10 mg PO DAILY 09/29/21 11/06/23 History metoprolol tartrate 25 mg tablet 25 mg PO BID 09/29/21 11/06/23 History Allergies Allergy/AdvReac Type Severity Reaction Status Date / Time latex Allergy Unknown Verified 11/06/23 20:27 ketorolac [From Toradol] AdvReac Unknown Verified 11/06/23 20:27 morphine AdvReac Unknown Verified 11/06/23 20:27 Exam Const: Vital Signs, click to edit/add: Vital Signs - 24 hr 11/06/23 20:24 11/06/23 21:11 11/06/23 21:11 Temperature 99.8 F H Pulse Rate [Right Pulse Oximeter] 82 Respiratory Rate 18 Blood Pressure [Ri ght Upper Arm] 99/63 Pulse Oximetry 96 93 93 Oxygen Delivery Me thod Room Air Nasal Cannula Oxygen Flow Rate 2 11/06/23 21:12 11/06/23 22:05 Temperature Pulse Rate [Right Pulse Oximeter] 83 81 Respiratory Rate 14 16 Blood Pressure [Ri ght Upper Arm] 104/57 L 124/62 Pulse Oximetry 93 97 Oxygen Delivery Me thod Nasal Cannula Nasal Cannula Oxygen Flow Rate 2 1 Hospitalist - H&P: Result Labs Labs: Short CBC 11/06/23 Range/Units 20:56 WBC 16.05 H (4.50-11.00) K/uL Hgb 14.7 (12.0-16.0) gm/dL Hct 46.2 (33.0-51.0) % Plt Count 571 H (140-440) K/uL BMP 11/06/23 20:56 Sodium 135 Potassium 4.1 Chloride 102 Carbon Dioxide 25 BUN 13 Creatinine 1.0 Glucose 138 H Calcium 9.3 Liver Function 11/06/23 Range/Units 20:56 Total Bilirubin 1.2 (0.1-1.5) mg/dL Direct Bilirubin 0.3 (0.0-0.5) mg/dL AST 25 (12-35) U/L ALT 18 (4-35) U/L Alkaline Phosphatase 90 (40-150) U/L Albumin 4.0 (3.3-5.0) g/dL Urine 11/06/23 Range/Units 22:00 Urine Color Yellow (Yellow) Urine Appearance Cloudy A (Clear) Urine pH 6.0 (5.0-8.5) Ur Specific [place] 1.025 (1.000-1.030) Urine Protein 3+ A (Negative) Urine Glucose (UA) Negative (Negative) Assessment and Plan Assessment and plan (1) Pyelonephritis: Problem comment: -early, however bilateral nonspecific diffuse periureteral stranding noted on CT -Rocephin 1 g given in the ED, will continue this Q 24 hours re-dosing in the morning. -fluids and pain control -no stone -no hydro -no bernal Status: Acute (2) SIRS (systemic inflammatory response syndrome): Problem comment: -bp improved quickly; tmax 99.8. -rocephin, fluids, general support for UTI and likely ascending urinary tract infection Status: Acute (3) Hypertension: Problem comment: -holding home meds currently Status: Acute (4) Adrenal nodule: Problem comment: -right -1.7 cm -indeterminate; consider nonemergent adrenal protocol CT. Status: Acute (5) Breast swelling: Problem comment: -Asymmetric left chest wall soft tissue thickening and stranding near the partially visualized left inferior breast. -consistent with history of bilateral mastectomy and fat grafting. No concerning findings on exam. Status: Acute (6) Obesity: Problem comment: -noted Status: Acute
[2023-11-06 23:00] VITALS: BP 108/56; PULSE 83; RESP 16; TEMP 37.2; O2SAT 97; BMI 37.5
[2023-11-06] MEDS: ACETAMINOPHEN 325 MG TABLET PO (23:54)
[2023-11-07] VITALS (8 sets, daily range): BP systolic 85–136; BP diastolic 46–73; PULSE 57–85; RESP 16–20; TEMP 36.6–37.5; O2SAT 92–100
[2023-11-07] MEDS: 0.9 % SODIUM CHLORIDE 1000 ml 1,000 ML 150 ML IV (00:11)
[2023-11-07] MEDS: 0.9 % SODIUM CHLORIDE 1000 ml 1,000 ML IV (05:03)
[2023-11-07] MEDS: ACETAMINOPHEN 325 MG TABLET PO ×2 (05:29→20:13)
[2023-11-07 06:24] LABS: Basophils Percent Auto 0.4 % (0.0-3.0); Eosinophils Percent Auto 0.3 % (0.0-7.0); Hematocrit 37.1 % (33.0-51.0); Hemoglobin* 11.6 gm/dL (12.0-16.0); Immature Granulocytes Pct Auto 0.2 %; Lymphocytes Percent Auto 7.7 % (20-44); Mean Corpuscular HGB Conc 31 gm/dL (32-36); Mean Corpuscular Hemoglobin 27 pg (26-34); Mean Corpuscular Volume 87 fL (80-100); Monocytes Percent Auto 6.7 % (0.0-11.0); Neutrophils Percent Auto 84.7 % (42.0-72.0); Platelet Count* 577 K/uL (140-440); RDW Coefficient of Variation % 16.1 % (11.5-15.5); Red Blood Count 4.25 m/uL (4.00-5.20)
[2023-11-07 06:27] LABS: Slide Review Reflex No
[2023-11-07 06:49] LABS: Chloride* 105 mmol/L (96-114); Sodium* 135 mmol/L (135-149)
[2023-11-07 06:50] LABS: Potassium* 4.2 mmol/L (3.6-5.1)
[2023-11-07 06:52] LABS: Creatinine* 1.3 mg/dL (0.5-1.5); Est. Creatinine Clearance* 32.29; Estimated Glomerular Filt Rate 43 ml/min
[2023-11-07 06:53] LABS: Anion Gap 4 mEq/L (7-15); Blood Urea Nitrogen* 17 mg/dL (7-30); Calcium* 8.4 mg/dL (8.4-10.6); Carbon Dioxide* 26 mmol/L (20-32); Glucose* 116 mg/dL (60-115)
[2023-11-07 06:56] LABS: C Reactive Protein* 7.7 mg/dL (0.5-1.0)
[2023-11-07] MEDS: 0.9 % SODIUM CHLORIDE 1000 ml 1,000 ML 100 ML IV (08:08)
--- NOTE | 2023-11-07 08:09 | PC.NURSE ---
END OF SHIFT NOTE: PT A&O. PT REPORTS HAWKINS WITH SOME RELIEF FROM PRN PAIN RELIEVER (SEE EMAR). BP'S SOFT; HORIZON UPDATED; LITER BOLUS ADMINISTERED. PT REPORTS URGENCY AND FREQUENCY IN URINATION. URINE IS CONCENTRATED, CLOUDY, WITH FOUL SMELL.
[2023-11-07] MEDS: NYSTATIN POWDER 1 APPLIC TOPICAL ×2 (09:32→20:14)
[2023-11-07] MEDS: OXYCODONE 5 MG TABLET PO (11:12)
[2023-11-07] MEDS: HYDROmorphone 0.5 mg/0.5 ml inj IVP (11:23)
--- NOTE | 2023-11-07 11:57 | P.IMPN_ITS ---
Progress Note: A&P Assessment and plan (1) SIRS (systemic inflammatory response syndrome): Problem details: -bp improved quickly; tmax 99.8. -rocephin, fluids, general support for UTI and likely ascending urinary tract infection 11/07/23: Improving. Status: Acute (2) Pyelonephritis: Problem details: -early, however bilateral nonspecific diffuse periureteral stranding noted on CT -Rocephin 1 g given in the ED, will continue this Q 24 hours re-dosing in the morning. -fluids and pain control -no stone -no hydro -no bernal 11/07/23: Continue with current interventions for now. Await urine culture results. Status: Acute (3) Hypotension: Problem details: - SBPs as low as 90 mmHg and improving now - continue to hold her lisinopril Status: Acute (4) Hypertension: Problem details: -holding home meds currently Status: Acute (5) Adrenal nodule: Problem details: -right -1.7 cm -indeterminate; consider nonemergent adrenal protocol CT in the future. -reviewed with patient and she expressed understanding - also gave her a copy of her CT scan report. Status: Acute (6) Breast swelling: Problem details: -Asymmetric left chest wall soft tissue thickening and stranding near the partially visualized left inferior breast. -consistent with history of bilateral mastectomy and fat grafting. No concerning findings on exam. Status: Acute Plan 1. Reviewed impression and plans with patient. Answered her questions. She is agreeable with 1 more day and night of in-house treatment and monitoring. 2. Other plans as specified above. Time Spent With Patient Total time spent: 40 minute Subjective Date Seen: 11/07/23 Interval history: Hospital day 2. Patient presented with symptomatic urinary tract infection. Improving today already with regard to the right flank discomfort that she had. No longer feeling febrile like she was yesterday. Weakness is improving. Appetite is improving. Exam Narrative: Exam Narrative: I examine in her in her hospital room. Vision and hearing are adequate. Alert and oriented x4. Lungs are clear to auscultation without wheezing, rhonchi, rales. No CVA tenderness with thumping today. Heart tones with regular rhythm, normal S1-S2, without murmur, gallop, rub. PMI not laterally displaced. Abdomen with active bowel sounds, soft, nontender. Extremities without edema. No focal motor neurologic deficits. Skin warm, dry, intact. I reviewed the urine culture plates. She is certainly growing an organism. Id and sensitivity are still pending. Const: Vital Signs, click to edit/add: Vital Signs - 24 hr 11/06/23 20:24 11/06/23 21:11 11/06/23 21:11 Temperature 99.8 F H Pulse Rate [Pulse Oximeter] Pulse Rate [Right Pulse Oximeter] 82 Pulse Rate [orthos tatic lying Pulse Oximeter] Pulse Rate [orthos tatic sitting Puls e Oximeter] Pulse Rate [orthos tatic standing Pul se Oximeter] Respiratory Rate 18 Blood Pressure [Ri ght Arm] Blood Pressure [Ri ght Upper Arm] 99/63 Blood Pressure [or thostatic lying Ri ght Arm] Blood Pressure [or thostatic sitting Right Arm] Blood Pressure [or thostatic standing Right Arm] Pulse Oximetry 96 93 93 Oxygen Delivery Me thod Room Air Nasal Cannula Oxygen Flow Rate 2 11/06/23 21:12 11/06/23 22:05 11/06/23 23:00 Temperature Pulse Rate [Pulse Oximeter] Pulse Rate [Right Pulse Oximeter] 83 81 Pulse Rate [orthos tatic lying Pulse Oximeter] Pulse Rate [orthos tatic sitting Puls e Oximeter] Pulse Rate [orthos tatic standing Pul se Oximeter] Respiratory Rate 14 16 16 Blood Pressure [Ri ght Arm] Blood Pressure [Ri ght Upper Arm] 104/57 L 124/62 Blood Pressure [or thostatic lying Ri ght Arm] Blood Pressure [or thostatic sitting Right Arm] Blood Pressure [or thostatic standing Right Arm] Pulse Oximetry 93 97 97 Oxygen Delivery Me thod Nasal Cannula Nasal Cannula Nasal Cannula Oxygen Flow Rate 2 1 2 11/06/23 23:00 11/06/23 23:00 11/06/23 23:00 Temperature 98.9 F 98.9 F Pulse Rate [Pulse Oximeter] 83 83 Pulse Rate [Right Pulse Oximeter] Pulse Rate [orthos tatic lying Pulse Oximeter] Pulse Rate [orthos tatic sitting Puls e Oximeter] Pulse Rate [orthos tatic standing Pul se Oximeter] Respiratory Rate 16 16 Blood Pressure [Ri ght Arm] 108/56 L 108/56 L Blood Pressure [Ri ght Upper Arm] Blood Pressure [or thostatic lying Ri ght Arm] Blood Pressure [or thostatic sitting Right Arm] Blood Pressure [or thostatic standing Right Arm] Pulse Oximetry 97 97 97 Oxygen Delivery Me thod Nasal Cannula Nasal Cannula Oxygen Flow Rate 2 2 11/06/23 23:00 11/07/23 03:55 11/07/23 04:35 Temperature 97.8 F Pulse Rate [Pulse Oximeter] 59 L 57 L Pulse Rate [Right Pulse Oximeter] Pulse Rate [orthos tatic lying Pulse Oximeter] Pulse Rate [orthos tatic sitting Puls e Oximeter] Pulse Rate [orthos tatic standing Pul se Oximeter] Respiratory Rate 16 16 Blood Pressure [Ri ght Arm] 88/53 L 85/46 L Blood Pressure [Ri ght Upper Arm] Blood Pressure [or thostatic lying Ri ght Arm] Blood Pressure [or thostatic sitting Right Arm] Blood Pressure [or thostatic standing Right Arm] Pulse Oximetry 97 95 95 Oxygen Delivery Me thod Nasal Cannula Room Air Room Air Oxygen Flow Rate 2 11/07/23 06:49 11/07/23 07:00 11/07/23 07:00 Temperature Pulse Rate [Pulse Oximeter] 65 Pulse Rate [Right Pulse Oximeter] Pulse Rate [orthos tatic lying Pulse Oximeter] 61 Pulse Rate [orthos tatic sitting Puls e Oximeter] 60 Pulse Rate [orthos tatic standing Pul se Oximeter] 62 Respiratory Rate 16 Blood Pressure [Ri ght Arm] Blood Pressure [Ri ght Upper Arm] Blood Pressure [or thostatic lying Ri ght Arm] 95/51 L Blood Pressure [or thostatic sitting Right Arm] 101/62 Blood Pressure [or thostatic standing Right Arm] 98/56 L Pulse Oximetry 95 Oxygen Delivery Me thod Oxygen Flow Rate 11/07/23 07:00 11/07/23 11:39 Temperature 98 F 98.3 F Pulse Rate [Pulse Oximeter] 65 71 Pulse Rate [Right Pulse Oximeter] Pulse Rate [orthos tatic lying Pulse Oximeter] Pulse Rate [orthos tatic sitting Puls e Oximeter] Pulse Rate [orthos tatic standing Pul se Oximeter] Respiratory Rate 16 18 Blood Pressure [Ri ght Arm] 101/71 124/68 Blood Pressure [Ri ght Upper Arm] Blood Pressure [or thostatic lying Ri ght Arm] Blood Pressure [or thostatic sitting Right Arm] Blood Pressure [or thostatic standing Right Arm] Pulse Oximetry 95 100 Oxygen Delivery Me thod Room Air Room Air Oxygen Flow Rate Labs Labs: Laboratory Results - last 24 hr 11/06/23 11/06/23 11/07/23 20:56 22:00 06:00 WBC 16.05 H 15.90 H RBC 5.43 H 4.25 Hgb 14.7 11.6 L Hct 46.2 37.1 MCV 85 87 MCH 27 27 MCHC 32 31 L RDW Coeff of Lisa 16.0 H 16.1 H Plt Count 571 H 577 H Neut % (Auto) 88.2 H 84.7 H Lymph % (Auto) 4.9 L 7.7 L [place] % (Auto) 5.7 6.7 Eos % (Auto) 0.9 0.3 Baso % (Auto) 0.1 0.4 Neut # (Auto) 14.20 H 13.50 H Lymph # (Auto) 0.80 L 1.20 [place] # (Auto) 0.90 1.10 H Eos # (Auto) 0.10 0.00 Baso # (Auto) 0.00 0.10 Abs Immat Gran (auto) 0.00 0.00 Imm/Tot Granulo (auto) 0.2 0.2 Sodium 135 135 Potassium 4.1 4.2 Chloride 102 105 Carbon Dioxide 25 26 Anion Gap 8 4 L BUN 13 17 Creatinine 1.0 1.3 Estimated Creat Clear 41.97 32.29 Estimated GFR 59 43 Glucose 138 H 116 H Lactate 1.6 Calcium 9.3 8.4 Total Bilirubin 1.2 Direct Bilirubin 0.3 AST 25 ALT 18 Alkaline Phosphatase 90 C-Reactive Protein 6.1 H 7.7 H Total Protein 6.8 Albumin 4.0 Lipase 39 Procalcitonin 0.07 Urine Color Yellow Urine Appearance Cloudy A Urine pH 6.0 Ur Specific [place] 1.025 Urine Protein 3+ A Urine Glucose (UA) Negative Urine Ketones 3+ A Urine Blood 3+ A Urine Nitrite Positive A Urine Bilirubin 1+ A Urine Urobilinogen 0.2 Ur Leukocyte Esterase 3+ A Urine RBC Urine WBC Ur Squamous Epith Cells Urine Bacteria
--- NOTE | 2023-11-07 12:21 | P.DS_ITS ---
DS: Providers Provider Date Seen: 11/07/23 Date of admission: 11/06/23 22:49 Primary care physician: Not a Local Provider Admitting Clinician: Anastasia Lewis MD Date of Discharge: 11/07/23 DS: Diagnosis Discharge Diagnosis (1) SIRS (systemic inflammatory response syndrome): Status: Acute Problem details: - BP improved soon after admission; TMax 99.8. - Rocephin, fluids, general support for UTI and likely ascending urinary tract infection (2) Pyelonephritis: Status: Acute Problem details: - early, however bilateral nonspecific diffuse periureteral stranding noted on initial CT (no stones or hydronephrosis) - treated with Rocephin, IVFs - urine culture + for pansensitive E Coli (3) Hypotension: Status: Acute Problem details: - SBPs as low as 90 mmHg on admission, improved during stay - antihypertensives held, will restart upon discharge (SPB 160 on day of discharge) (4) Hypertension: Status: Acute (5) Adrenal nodule: Status: Acute Problem details: - right, 1.7 cm - indeterminate; consider nonemergent adrenal protocol CT in the future - patient aware, also gave her a copy of her CT scan report (6) Breast swelling: Status: Acute Problem details: - Asymmetric left chest wall soft tissue thickening and stranding near the partially visualized left inferior breast - consistent with history of bilateral mastectomy and fat grafting. No conc erning findings on admission exam (7) Obesity: Status: Acute DS: Summary Hospital Course Hospital Course: Per H&P: Gisel is a 73-year-old woman who says that over the weekend she developed pain in her right flank which has gotten progressively worse, she now has pain in her right abdomen as well. She has had nausea, no fever that she knows of but she says she felt warm last night. She does note that she has had dysuria frequency and urgency also since the weekend. She has been other overnight every hour going to the bathroom. She has not noted blood in her urine. She does have a history of kidney stones per her report. She denies abdominal surgeries. Takes lisinopril and metoprolol for high blood pressure, denies other medical history. Today she has had no appetite, she says she has been drinking water. She lists allergies to Toradol and morphine, she says when she had that kidney stone years ago they gave her both of them and they cause some kind of clenching sensation in her chest. She says they then used Dilaudid instead and she eventually passed stone on her own. She did not need any specific treatment for an allergic reaction. She does not smoke or drink. During stay, treated with IV fluids and IV ceftriaxone and clinically improved. No fevers, WBC trended downward. Urine culture + for pansensitive E Coli, discharged home on Bactrim. Will f/u with PCP in [place] when she arrives home. Status at Discharge Functional status at discharge: independent ambulation Overall status at discharge: patient is progressing back to baseline Time Spent with Patient Time attestation: Total time spent providing and/or coordinating discharge services: Time spent: Less than 30 minutes Exam Narrative: Exam Narrative: Vision and hearing are adequate. Alert and oriented x4. Lungs are clear to auscultation without wheezing, rhonchi, rales. No CVA tenderness with thumping today. Heart tones with regular rhythm, normal S1-S2, without murmur, gallop, rub. PMI not laterally displaced. Abdomen with active bowel sounds, soft, nontender. Extremities without edema. No focal motor neurologic deficits. Independent in transfer, station, and gait. Skin warm, dry, intact. Const: Vital Signs, click to edit/add: Vital Signs - 24 hr 11/06/23 20:24 11/06/23 21:11 11/06/23 21:11 Temperature 99.8 F H Pulse Rate [Pulse Oximeter] Pulse Rate [Right Pulse Oximeter] 82 Pulse Rate [orthos tatic lying Pulse Oximeter] Pulse Rate [orthos tatic sitting Puls e Oximeter] Pulse Rate [orthos tatic standing Pul se Oximeter] Respiratory Rate 18 Blood Pressure [Ri ght Arm] Blood Pressure [Ri ght Upper Arm] 99/63 Blood Pressure [or thostatic lying Ri ght Arm] Blood Pressure [or thostatic sitting Right Arm] Blood Pressure [or thostatic standing Right Arm] Pulse Oximetry 96 93 93 Oxygen Delivery Me thod Room Air Nasal Cannula Oxygen Flow Rate 2 11/06/23 21:12 11/06/23 22:05 11/06/23 23:00 Temperature Pulse Rate [Pulse Oximeter] Pulse Rate [Right Pulse Oximeter] 83 81 Pulse Rate [orthos tatic lying Pulse Oximeter] Pulse Rate [orthos tatic sitting Puls e Oximeter] Pulse Rate [orthos tatic standing Pul se Oximeter] Respiratory Rate 14 16 16 Blood Pressure [Ri ght Arm] Blood Pressure [Ri ght Upper Arm] 104/57 L 124/62 Blood Pressure [or thostatic lying Ri ght Arm] Blood Pressure [or thostatic sitting Right Arm] Blood Pressure [or thostatic standing Right Arm] Pulse Oximetry 93 97 97 Oxygen Delivery Me thod Nasal Cannula Nasal Cannula Nasal Cannula Oxygen Flow Rate 2 1 2 11/06/23 23:00 11/06/23 23:00 11/06/23 23:00 Temperature 98.9 F 98.9 F Pulse Rate [Pulse Oximeter] 83 83 Pulse Rate [Right Pulse Oximeter] Pulse Rate [orthos tatic lying Pulse Oximeter] Pulse Rate [orthos tatic sitting Puls e Oximeter] Pulse Rate [orthos tatic standing Pul se Oximeter] Respiratory Rate 16 16 Blood Pressure [Ri ght Arm] 108/56 L 108/56 L Blood Pressure [Ri ght Upper Arm] Blood Pressure [or thostatic lying Ri ght Arm] Blood Pressure [or thostatic sitting Right Arm] Blood Pressure [or thostatic standing Right Arm] Pulse Oximetry 97 97 97 Oxygen Delivery Me thod Nasal Cannula Nasal Cannula Oxygen Flow Rate 2 2 11/06/23 23:00 11/07/23 03:55 11/07/23 04:35 Temperature 97.8 F Pulse Rate [Pulse Oximeter] 59 L 57 L Pulse Rate [Right Pulse Oximeter] Pulse Rate [orthos tatic lying Pulse Oximeter] Pulse Rate [orthos tatic sitting Puls e Oximeter] Pulse Rate [orthos tatic standing Pul se Oximeter] Respiratory Rate 16 16 Blood Pressure [Ri ght Arm] 88/53 L 85/46 L Blood Pressure [Ri ght Upper Arm] Blood Pressure [or thostatic lying Ri ght Arm] Blood Pressure [or thostatic sitting Right Arm] Blood Pressure [or thostatic standing Right Arm] Pulse Oximetry 97 95 95 Oxygen Delivery Me thod Nasal Cannula Room Air Room Air Oxygen Flow Rate 2 11/07/23 06:49 11/07/23 07:00 11/07/23 07:00 Temperature Pulse Rate [Pulse Oximeter] 65 Pulse Rate [Right Pulse Oximeter] Pulse Rate [orthos tatic lying Pulse Oximeter] 61 Pulse Rate [orthos tatic sitting Puls e Oximeter] 60 Pulse Rate [orthos tatic standing Pul se Oximeter] 62 Respiratory Rate 16 Blood Pressure [Ri ght Arm] Blood Pressure [Ri ght Upper Arm] Blood Pressure [or thostatic lying Ri ght Arm] 95/51 L Blood Pressure [or thostatic sitting Right Arm] 101/62 Blood Pressure [or thostatic standing Right Arm] 98/56 L Pulse Oximetry 95 Oxygen Delivery Me thod Oxygen Flow Rate 11/07/23 07:00 11/07/23 11:39 Temperature 98 F 98.3 F Pulse Rate [Pulse Oximeter] 65 71 Pulse Rate [Right Pulse Oximeter] Pulse Rate [orthos tatic lying Pulse Oximeter] Pulse Rate [orthos tatic sitting Puls e Oximeter] Pulse Rate [orthos tatic standing Pul se Oximeter] Respiratory Rate 16 18 Blood Pressure [Ri ght Arm] 101/71 124/68 Blood Pressure [Ri ght Upper Arm] Blood Pressure [or thostatic lying Ri ght Arm] Blood Pressure [or thostatic sitting Right Arm] Blood Pressure [or thostatic standing Right Arm] Pulse Oximetry 95 100 Oxygen Delivery Me thod Room Air Room Air Oxygen Flow Rate DS: Data Data Completed and Pending Labs on day of discharge: Labs from last 24 hours 11/07/23 11/06/23 11/06/23 06:00 22:00 20:56 WBC 15.90 H 16.05 H RBC 4.25 5.43 H Hgb 11.6 L 14.7 Hct 37.1 46.2 MCV 87 85 MCH 27 27 MCHC 31 L 32 RDW Coeff of Lisa 16.1 H 16.0 H Plt Count 577 H 571 H Neut % (Auto) 84.7 H 88.2 H Lymph % (Auto) 7.7 L 4.9 L [place] % (Auto) 6.7 5.7 Eos % (Auto) 0.3 0.9 Baso % (Auto) 0.4 0.1 Neut # (Auto) 13.50 H 14.20 H Lymph # (Auto) 1.20 0.80 L [place] # (Auto) 1.10 H 0.90 Eos # (Auto) 0.00 0.10 Baso # (Auto) 0.10 0.00 Abs Immat Gran (auto) 0.00 0.00 Imm/Tot Granulo (auto) 0.2 0.2 Sodium 135 135 Potassium 4.2 4.1 Chloride 105 102 Carbon Dioxide 26 25 Anion Gap 4 L 8 BUN 17 13 Creatinine 1.3 1.0 Estimated Creat Clear 32.29 41.97 Estimated GFR 43 59 Glucose 116 H 138 H Lactate 1.6 Calcium 8.4 9.3 Total Bilirubin 1.2 Direct Bilirubin 0.3 AST 25 ALT 18 Alkaline Phosphatase 90 C-Reactive Protein 7.7 H 6.1 H Total Protein 6.8 Albumin 4.0 Lipase 39 Procalcitonin 0.07 Urine Color Yellow Urine Appearance Cloudy A Urine pH 6.0 Ur Specific [place] 1.025 Urine Protein 3+ A Urine Glucose (UA) Negative Urine Ketones 3+ A Urine Blood 3+ A Urine Nitrite Positive A Urine Bilirubin 1+ A Urine Urobilinogen 0.2 Ur Leukocyte Esterase 3+ A Urine RBC Urine WBC Ur Squamous Epith Cells Urine Bacteria Preliminary micro results at discharge 11/06/23 22:00 Urine Culture - Preliminary Urine,Clean Catch Gram negative [facility] CT scan of abdomen and pelvis: Radiologist's impression: 1. There are no visualized renal or ureteral calculi, and no hydroureteronephrosis. Of note, evaluation of the distal ureters is somewhat limited by artifact from right total hip arthroplasty. 2. There is nonspecific bilateral periureteral fat stranding, which may be related to age related changes, though can be seen in the setting of an ascending urinary tract infection. Consider correlation with urinalysis. 3. Asymmetric left chest wall soft tissue thickening and stranding near the partially visualized left inferior breast. Correlation with physical examination, and prior mammographic results (if available), is recommended. 4. Right adrenal nodule measures 1.7 cm and approximately 21 Hounsfield units, and is indeterminate on this single-phase CT. This could be further characterized with a nonemergent adrenal protocol CT. Discharge Plan Discharge Disposition: Home, Self-Care Date of Admission: 11/07/23 16:57 Attending Provider on Discharge: Shagufta Wylie Primary Care Provider: Provider,Not a Local Condition: Improved Anticipated Discharge Date/Time: 11/08/23 11:00 Discharge Medications: New oxycodone 5 mg Tablet 2.5 mg PO Q6H PRNQty: 10 0RF sulfamethoxazole-trimethoprim [Bactrim DS] 800-160 mg tablet 1 tab PO BID Qty: 10 0RF Continued lisinopril 10 mg tablet 10 mg PO DAILY metoprolol tartrate 25 mg tablet 25 mg PO BID Discharge Orders: Discharge Order (Routine); Ordered 11/08/23 Ordered By: Shagufta Wylie Patient Education: Sulfamethoxazole/Trimethoprim (By mouth), Oxycodone, Rapid Release (By mouth), Urinary Tract Infection in Women (DC), Urinary Tract Infection in Older Adults (DC) Additional Instructions: Your blood pressure is coming up nicely on 11/07, restart home Metoprolol and Lisinopril on 11/09/23 at home. Antibiotics and pain medications at [facility]. No driving while taking narcotics. Follow-up with PCP in 1-2 weeks, follow-up regarding UTI and consideration for possible future non-urgent dedicated CT scan to further assess right adrenal nodule. Activity Level: No Restrictions and Activity as Tolerated Discharge Diet: Regular Follow Up Appointments: Provider,Not a Local [Primary Care Provider] - (Patient will make own appt. PLEASE fax records to [phone] (physician clinic in [place], [place])) Forms: [email or web address] Info Instructions
--- NOTE | 2023-11-07 15:43 | PC.NURSE ---
End of shift [id number]: Pt has been A&O, afebrile and VSS this shift. She is up ad elise in the room. PIV in right FA infusing NaCl @ 100 mL/hr. ordered for IV fluids to be D/C?d this AM but patient declined to have them stopped saying ?I?ve already paid for this whole bag I?d like to finish it?. Pt has a LUE restriction d/t h/o bilat mastectomy with left side lymph node removal. Pt has been voiding but reports urine is dark and concentrated. Had c/o headache this morning. Right flank pain significantly increased late morning requiring PRN oxycodone @ 1110 and PRN IV Dilaudid @ 1123. Pt reports pain relief after that. Urine culture prelim results show gram negative rods.?
--- NOTE | 2023-11-07 18:39 | PC.NURSE ---
End of Shift ([id number]): Patient pleasant and cooperative. Patient vitally stable, lungs clear, BS WNL, IV running NS at 100. Patient independent in room, tolerating regular diet, and urinating well. Patient rates headache 2/10, no pain meds given. Patient up in chair this shift.
[2023-11-07] MEDS: cefTRIAXone 1 GM in 0.9 % SODIUM CHLORIDE Mini-bag 100 ML IVPB (20:14)
[2023-11-07] MEDS: SODIUM CHLORIDE 0.9 % (FLUSH) 10 ML SYRINGE 5 ML IVF (20:14)
[2023-11-08] MEDS: OXYCODONE 5 MG TABLET PO ×2 (03:03→08:26)
[2023-11-08 03:08] VITALS: BP 108/68; PULSE 67; RESP 20; TEMP 37.2; O2SAT 97
--- NOTE | 2023-11-08 06:34 | PC.NURSE ---
19-: pleasant and cooperative. Calls appropriately. Indep in rm. Tylenol given at HS in hopes to stay on top of back pain, pt woke to use restroom around 0300 with 8/10 right flank pain, 5mg oxy given, offered relief. Pt mentioned her urine is still dark & cloudy, freelance copywriter agreed & encouraged PO water intake.
[2023-11-08 06:53] LABS: Basophils Percent Auto 0.2 % (0.0-3.0); Eosinophils Percent Auto 2.1 % (0.0-7.0); Hematocrit 36.2 % (33.0-51.0); Hemoglobin* 11.2 gm/dL (12.0-16.0); Immature Granulocytes Pct Auto 0.3 %; Mean Corpuscular HGB Conc 31 gm/dL (32-36); Mean Corpuscular Hemoglobin 27 pg (26-34); Mean Corpuscular Volume 88 fL (80-100); Monocytes Percent Auto 7.1 % (0.0-11.0); Neutrophils Percent Auto 83.3 % (42.0-72.0); Platelet Count* 486 K/uL (140-440); RDW Coefficient of Variation % 16.2 % (11.5-15.5); Red Blood Count 4.13 m/uL (4.00-5.20); White Blood Count* 13.51 K/uL (4.50-11.00)
[2023-11-08 06:54] LABS: Slide Review Reflex No
[2023-11-08 07:01] LABS: Chloride* 106 mmol/L (96-114)
[2023-11-08 07:02] LABS: Potassium* 4.2 mmol/L (3.6-5.1); Sodium* 136 mmol/L (135-149)
[2023-11-08 07:04] LABS: Est. Creatinine Clearance* 41.97; Estimated Glomerular Filt Rate 59 ml/min
[2023-11-08 07:05] LABS: Anion Gap 5 mEq/L (7-15); Blood Urea Nitrogen* 17 mg/dL (7-30); Carbon Dioxide* 25 mmol/L (20-32); Glucose* 122 mg/dL (60-115)
[2023-11-08 07:06] LABS: Calcium* 8.8 mg/dL (8.4-10.6)
[2023-11-08 07:39] LABS: C Reactive Protein* 13.3 mg/dL (0.5-1.0)
[2023-11-08] MEDS: NYSTATIN POWDER 1 APPLIC TOPICAL (08:27)
[2023-11-08 08:30] VITALS: O2SAT 93
[2023-11-08 08:31] VITALS: BP 145/72; PULSE 79; RESP 18; TEMP 37.2; O2SAT 93
[2023-11-08 08:32] VITALS: PULSE 79; RESP 18
--- NOTE | 2023-11-08 10:03 | P.DS_ITS ---
DS: Providers Provider Date Seen: 11/08/23 Date of admission: 11/07/23 16:57 Primary care physician: Not a Local Provider Admitting Clinician: Anastasia Lewis MD Attending Physician on discharge: Shagufta Wylie MD Date of Discharge: 11/08/23 DS: Diagnosis Discharge Diagnosis (1) SIRS (systemic inflammatory response syndrome): Status: Acute Problem details: - BP improved soon after admission; TMax 99.8. - Rocephin, fluids, general support for UTI and likely ascending urinary tract infection (2) Pyelonephritis: Status: Acute Problem details: - early, however bilateral nonspecific diffuse periureteral stranding noted on initial CT (no stones or hydronephrosis) - treated with Rocephin, IVFs - urine culture + for pansensitive E Coli (3) Hypotension: Status: Acute Problem details: - SBPs as low as 90 mmHg on admission, improved during stay - antihypertensives held, will restart upon discharge (SPB 160 on day of discharge) (4) Hypertension: Status: Acute (5) Adrenal nodule: Status: Acute Problem details: - right, 1.7 cm - indeterminate; consider nonemergent adrenal protocol CT in the future - patient aware, also gave her a copy of her CT scan report (6) Breast swelling: Status: Acute Problem details: - Asymmetric left chest wall soft tissue thickening and stranding near the partially visualized left inferior breast - consistent with history of bilateral mastectomy and fat grafting. No concerning findings on admission exam DS: Summary Hospital Course Hospital Course: Per H&P: Gisel is a 73-year-old woman who says that over the weekend she developed pain in her right flank which has gotten progressively worse, she now has pain in her right abdomen as well. She has had nausea, no fever that she knows of but she says she felt warm last night. She does note that she has had dysuria frequency and urgency also since the weekend. She has been other overnight every hour going to the bathroom. She has not noted blood in her urine. She does have a history of kidney stones per her report. She denies abdominal surgeries. Takes lisinopril and metoprolol for high blood pressure, denies other medical history. Today she has had no appetite, she says she has been drinking water. She lists allergies to Toradol and morphine, she says when she had that kidney stone years ago they gave her both of them and they cause some kind of clenching sensation in her chest. She says they then used Dilaudid instead and she eventually passed stone on her own. She did not need any specific treatment for an allergic reaction. She does not smoke or drink. During stay, treated with IV fluids and IV ceftriaxone and clinically improved. No fevers, WBC trended downward. Urine culture + for pansensitive E Coli, discharged home on Bactrim. Will f/u with PCP in [place] when she arrives home. Status at Discharge Functional status at discharge: independent ambulation Overall status at discharge: patient is progressing back to baseline Time Spent with Patient Time attestation: Total time spent providing and/or coordinating discharge services: Time spent: Greater than 30 minutes Specific discharge activities: Medication reconciliation, chart review, d/c documentation Exam Narrative: Exam Narrative: GEN: Alert and oriented, nontoxic, sitting comfortably in bedside chair HEENT: EOMIs bilaterally, no scleral icterus CV: RRR, No concerning murmurs, rubs, or gallops R: LCTA bilaterally without concerning wheezing Back: Normal contours, no CVA ttp Ext: wwp, no concerning edema Skin: No concerning skin lesions or rashes Neuro: No focal deficits Psych: Appropriate Const: Vital Signs, click to edit/add: Vital Signs - 24 hr 11/07/23 11:39 11/07/23 15:33 11/07/23 15:33 Temperature 98.3 F 99.5 F Pulse Rate [Pulse Oximeter] 71 84 Respiratory Rate 18 20 Blood Pressure [Ri t Arm] 124/68 136/73 Pulse Oximetry 100 92 92 Oxygen Delivery Me thod Room Air Room Air 11/07/23 15:33 11/07/23 20:05 11/07/23 22:29 Temperature 98.7 F Pulse Rate [Pulse Oximeter] 84 85 Respiratory Rate 20 20 Blood Pressure [Ri t Arm] 120/60 Pulse Oximetry 97 97 Oxygen Delivery Me thod Room Air 11/07/23 22:29 11/08/23 03:08 11/08/23 08:30 Temperature 98.9 F Pulse Rate [Pulse Oximeter] 67 Respiratory Rate 20 20 Blood Pressure [Ri t Arm] 108/68 Pulse Oximetry 97 93 Oxygen Delivery Me thod Room Air 11/08/23 08:31 11/08/23 08:32 Temperature 99.0 F Pulse Rate [Pulse Oximeter] 79 79 Respiratory Rate 18 18 Blood Pressure [Ri ght Arm] 145/72 H Pulse Oximetry 93 Oxygen Delivery De thod Room Air DS: Data Data Completed and Pending Labs on day of discharge: Labs from last 24 hours 11/08/23 06:20 WBC 13.51 H RBC 4.13 Hgb 11.2 L Hct 36.2 MCV 88 MCH 27 MCHC 31 L RDW Coeff of Lisa 16.2 H Plt Count 486 H Neut % (Auto) 83.3 H Lymph % (Auto) 7.0 L Bartholomew % (Auto) 7.1 Eos % (Auto) 2.1 Baso % (Auto) 0.2 Neut # (Auto) 11.30 H Lymph # (Auto) 0.90 Bartholomew # (Auto) 1.00 H Eos # (Auto) 0.30 Baso # (Auto) 0.00 Abs Immat Gran (auto) 0.00 Imm/Tot Granulo (auto) 0.3 Sodium 136 Potassium 4.2 Chloride 106 Carbon Dioxide 25 Anion Gap 5 L BUN 17 Creatinine 1.0 Estimated Creat Clear 41.97 Estimated GFR 59 Glucose 122 H Calcium 8.8 C-Reactive Protein 13.3 H Preliminary micro results at discharge 11/06/23 21:27 Blood Culture - Preliminary Blood NO GROWTH AFTER 24 HOURS Discharge Plan Discharge Disposition: Home, Self-Care Date of Admission: 11/07/23 16:57 Attending Provider on Discharge: Shagufta Wylie Primary Care Provider: Provider,Not a Local Condition: Improved Anticipated Discharge Date/Time: 11/08/23 11:00 Discharge Medications: New oxycodone 5 mg Tablet 2.5 mg PO Q6H PRNQty: 10 0RF sulfamethoxazole-trimethoprim [Bactrim DS] 800-160 mg tablet 1 tab PO BID Qty: 10 0RF Continued lisinopril 10 mg tablet 10 mg PO DAILY metoprolol tartrate 25 mg tablet 25 mg PO BID Discharge Orders: Discharge Order (Routine); Ordered 11/08/23 Ordered By: Shagufta Wylie Patient Education: Sulfamethoxazole/Trimethoprim (By mouth), Oxycodone, Rapid Release (By mouth), Urinary Tract Infection in Women (DC), Urinary Tract Infection in Older Adults (DC) Additional Instructions: Your blood pressure is coming up nicely on 11/07, restart home Metoprolol and Lisinopril on 11/09/23 at home. Antibiotics and pain medications at [facility]. No driving while taking narcotics. Follow-up with PCP in 1-2 weeks, follow-up regarding UTI and consideration for possible future non-urgent dedicated CT scan to further assess right adrenal nodule. Activity Level: No Restrictions and Activity as Tolerated Discharge Diet: Regular Follow Up Appointments: Provider,Not a Local [Primary Care Provider] - (Patient will make own appt. PLEASE fax records to [phone] (physician clinic in [place], [place])) Forms: [facility] Info Instructions
[2023-11-08 11:15] VITALS: BP 160/72; PULSE 75; RESP 18; TEMP 37; O2SAT 94
--- NOTE | 2023-11-08 12:32 | PC.NURSE ---
discharge. pt has been cooperative. abd pain 2-07/21 she got po oxycodone for it. she is using the Call light appropriately. urine is still cloudy, encouraged PO water intake. she is eating, drinking, and voiding. SL was d/c intact. encouraged to not drive. both nurse and animal rides manager also talked to pt about driving and narcs. pt went over and signed personal belonign sheet. she wanted to take a shower before she leaves. she will get a w/c ride out
== END 2023-11-08 12:52 | disposition home or self-care (01) | DRG 690 ==
LOC: ED 22:33 → MEDSURG 22:50
PROVIDERS: Internal Medicine; Admitting Provider Family Medicine; Emergency Provider Emergency Medicine; Visit Provider Family Medicine
DX: N10 Acute pyelonephritis (principal); B96.20 Unspecified Escherichia coli [E. coli] as the cause of diseases classified elsewhere; I95.9 Hypotension, unspecified; E27.9 Disorder of adrenal gland, unspecified; R22.2 Localized swelling, mass and lump, trunk; Z90.13 Acquired absence of bilateral breasts and nipples; I10 Essential (primary) hypertension; E66.9 Obesity, unspecified; Z68.37 Body mass index [BMI] 37.0-37.9, adult; Z87.442 Personal history of urinary calculi
CPT/HCPCS: 36415; 74176; 80048; 80076; 81001; 83605; 83690; 84145; 85025; 86140; 87040; 87086; 87186; 94761; 99284; 99285; G0378; A9270; J0696; J1170; J2405; J7030

== ENCOUNTER 2024-08-03 18:22 | Emergency (ER) | payer MEDICARE, OTHER, SELFPAY ==
[2024-08-03] VITALS (11 sets, daily range): BP systolic 147–158; BP diastolic 96–110; PULSE 94–142; RESP 13–36; TEMP 36.7; O2SAT 94–97; BMI 38.3
--- NOTE | 2024-08-03 18:34 | ED.GENADULT ---
HPI - General Adult General Time Seen by Provider: 18:34 Date Seen: 08/03/24 Chief complaint: Abdominal Pain Stated complaint: Lower abdominal pain Time Seen by Provider: 08/03/24 18:28 Source: patient, RN notes reviewed and old records reviewed Mode of arrival: ambulatory Limitations: no limitations History of Present Illness HPI narrative: 73-year-old female who comes in today with lower abdominal cramping, fatigue, diarrhea. Started this morning about 5:00 a.m.. Patient has had diarrhea with some mucus and some blood in the stools. She denies fever chills, no urinary symptoms. She has not taken anything for symptoms, did not take her blood pressure medications today either. Related Data Home Medications ?Medication ?Instructions ?Recorded ?Confirmed lisinopril 10 mg tablet 10 mg PO DAILY 09/29/21 11/06/23 metoprolol tartrate 25 mg tablet 25 mg PO BID 09/29/21 11/06/23 Previous Rx's ?Medication ?Instructions ?Recorded oxycodone 5 mg tablet 2.5 mg (1/2 x 5 mg) PO Q6H PRN #10 11/08/23 tabs sulfamethoxazole 800 1 tab PO BID #10 tabs 11/08/23 mg-trimethoprim 160 mg tablet (Bactrim DS) Allergies Allergy/AdvReac Type Severity Reaction Status Date / Time latex Allergy Unknown Verified 11/06/23 20:27 ketorolac (From Toradol) AdvReac Unknown Verified 11/06/23 20:27 morphine AdvReac Unknown Verified 11/06/23 20:27 [facility] PFS Medical History (Updated 08/03/24 @ 21:07 by Shiva Groves MD) Hypertension ?I10 - Essential (primary) hypertension (ICD-10) Surgical History (Updated 11/06/23 @ 22:58 by Anastasia Lewis MD) History of total right hip arthroplasty ?Z96.641 - Presence of right artificial hip joint (ICD-10) Social History (Updated 11/06/23 @ 23:28 by Anastasia Lewis MD) Narrative: from [place], [place] - here in [place] - visiting grandchild and helping with her late daughter's estate. 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, - lives alone nonsmoker, rare social alcohol What is your current living situation?: I presently have a place to live Problems where you live: no known problems Problems where you live details: NONE In the past 12 months, utilities in danger of being shut off: no In past 12 months, lack of transportation kept you from medical appts, meetings, work, or getting things needed for daily living: no In the past 12 mos, have been you worried that your food would run out before you had money to buy more?: never true In the past 12 mos, the food you bought just didn't last and you didn't have money to buy more?: never true Highest level of school completed/degree received: Professional degree (MD, [employer]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[employer], DVM, DDS) Smoking Status: Never smoker Do you use any of these nicotine containing products: None Second hand tobacco smoke exposure: No How often do you have a drink containing alcohol: monthly or less AUDIT-C Alcohol total score: 1 Non-prescribed substance use: denies use How often does anyone, including family, friends and others, physically hurt you: never How often does anyone, including family, friends and others, insult or talk down to you: never How often does anyone, including family, friends and others, threaten you with harm: never How often does anyone, including family, friends and others, scream or curse at you: rarely service: No Health Related Social Needs: Other personal risk factors, not elsewhere classified (Z91.89) Exam Narrative: Exam Narrative: General: Well-developed and well-nourished, no acute distress Head: Atraumatic and normocephalic Eyes: Pupils are equal reactive, extraocular motions intact, conjunctiva clear ENT: External nose and ears are normal, posterior pharynx without erythema or exudate Neck: No midline cervical tenderness, full spontaneous range of motion the neck, trachea midline, no adenopathy Heart: Regular rate and rhythm no murmurs or thrills Lungs: Clear to auscultation bilaterally without wheezes or crackles Abdomen: Soft, mild suprapubic tenderness, nondistended with active bowel sounds Musculoskeletal: No tenderness, deformity, or edema Neurologic: Awake, alert, and oriented x3, no gross focal neurologic deficits, cranial nerves intact as tested Psych: Mood and affect are appropriate Skin: No rashes Const: Vital Signs, click to edit/add: Vital Signs - 24 hr 08/03/24 18:36 08/03/24 19:59 08/03/24 20:00 Temperature 98.0 F Pulse Rate 120 H 118 H Pulse Rate [Pulse Oximeter] 142 H Respiratory Rate 18 13 Blood Pressure [Le ft Upper Arm] 158/96 H Pulse Oximetry 94 95 97 Oxygen Delivery Me thod Room Air 08/03/24 20:15 08/03/24 20:41 08/03/24 21:00 Temperature Pulse Rate 94 Pulse Rate [Pulse Oximeter] Respiratory Rate 13 13 Blood Pressure [Le ft Upper Arm] Pulse Oximetry 96 Oxygen Delivery Me thod 08/03/24 21:34 08/03/24 21:45 08/03/24 22:00 Temperature Pulse Rate Pulse Rate [Pulse Oximeter] Respiratory Rate 25 H 36 H 20 Blood Pressure [Le ft Upper Arm] Pulse Oximetry Oxygen Delivery Me thod Course Course ED Course: Reviewed prior admission from October 2023 when patient was admitted for SIRS related to ascending urinary tract infection and pyelonephritis, treated with Rocephin and urine culture with pansensitive E coli. Patient did not require pressors during that admission. Patient presents today with fatigue, low abdominal pain and cramping, and diarrhea starting today. Has noted some blood in the stools. In the exam here, no fever, mild low abdominal tenderness. Suspect colitis, diverticulitis also possible. Labs are ordered along with CT abdomen and pelvis. Reevaluation(s) Time of Reevaluation #1: 19:54 Reevaluation #1: EKG independently interpreted by me performed at 7:51 p.m. demonstrates atrial fibrillation with rapid ventricular response rate 118, left anterior fascicular block, no acute ischemic changes, QTC 451. No prior for comparison. On telemetry heart rate is between 100-130, oral metoprolol was given and will continue to monitor, consider IV metoprolol as symptoms persist. Time of Reevaluation #2: 20:46 Reevaluation #2: Care discussed with radiologist, there is evidence for a sigmoid and descending colitis, however there does also appear to be a focal thrombus in the SMA which is favored to be incidental. Time of Reevaluation #3: 20:56 Reevaluation #3: Patient rechecked and we discussed findings on CT scan and plan. 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 I did contact man arrange follow-up, they requested I speak with vascular surgery. Additional Reevaluation(s): 21:53 Waiting for call back from vascular surgery from [facility]. 22:[address] Ochoa, vascular surgery at [facility]. Agrees that as it may occlusion is not likely causing the colitis seen on CT, however is concerned that this could still represent ischemic colitis. Recommends transfer to [facility] for further evaluation. Updated patient and she is stable for transfer. Patient did eat while she was in the department with no increase in her pain. Vital Signs Vital signs: Initial Vital Signs Temperature 98.0 F 08/03/24 18:36 Temperature Source Temporal Artery Scan 08/03/24 18:36 Pulse Rate 142 H 08/03/24 18:36 Respiratory Rate 18 08/03/24 18:36 Blood Pressure 158/96 H 08/03/24 18:36 Blood Pressure Mean 116 H 08/03/24 18:36 Blood Pressure Position Supine 08/03/24 18:36 Pulse Oximetry 94 08/03/24 18:36 Oxygen Delivery Method Room Air 08/03/24 18:36 Vital Signs Temperature 98.0 F 08/03/24 18:36 Pulse Rate 142 H 08/03/24 18:36 Respiratory Rate 18 08/03/24 18:36 Blood Pressure 158/96 H 08/03/24 18:36 Pulse Oximetry 94 08/03/24 18:36 Oxygen Delivery Method Room Air 08/03/24 18:36 Temperature 98.0 F 08/03/24 18:36 Pulse Rate 94 08/03/24 20:15 Respiratory Rate 20 08/03/24 22:00 Blood Pressure 158/96 H 08/03/24 18:36 Pulse Oximetry 96 08/03/24 20:15 Oxygen Delivery Method Room Air 08/03/24 18:36 Medications Administered Medications: Discontinued Medications Generic Name Dose Route Start Last Admin Trade Name Freq PRN Reason Stop Dose Admin Amoxicillin/Clavulanate Potassium 875 mg 08/03/24 21:00 08/03/24 21:32 Amoxicillin/Clavulanate 875 Mg/125 Mg Tablet PO 08/03/24 21:01 875 mg ONCE ONE Administration Sodium Chloride 1,000 mls @ 1,000 mls/hr 08/03/24 19:00 08/03/24 21:12 0.9 % Sodium Chloride 1000 Ml IV 08/03/24 19:59 Infused .Q1H YARA Infusion Metoprolol Tartrate 25 mg 08/03/24 19:03 08/03/24 19:38 Metoprolol Tartrate 25 Mg Tablet PO 08/03/24 19:04 25 mg ONCE ONE Administration Medical Decision Making Lab Data Labs: Lab Results 08/03/24 08/03/24 Range/Units 18:41 19:35 WBC 12.90 H (4.50-11.00) K/uL RBC 5.45 H (4.00-5.20) m/uL Hgb 15.0 (12.0-16.0) gm/dL Hct 47.1 (33.0-51.0) % MCV 86 (80-100) fL MCH 28 (26-34) pg MCHC 32 (32-36) gm/dL RDW Coeff of Lisa 14.4 (11.5-15.5) % Plt Count 733 H (140-440) K/uL Neut % (Auto) 78.8 H (42.0-72.0) % Lymph % (Auto) 12.9 L (20-44) % Newton % (Auto) 5.3 (0.0-11.0) % Eos % (Auto) 2.4 (0.0-7.0) % Baso % (Auto) 0.4 (0.0-3.0) % Neut # (Auto) 10.20 H (1.7-7.0) K/uL Lymph # (Auto) 1.70 (0.90-2.90) K/uL Newton # (Auto) 0.70 (0.00-0.90) K/UL Eos # (Auto) 0.30 (0.00-0.50) K/uL Baso # (Auto) 0.10 (0.00-0.30) K/uL Abs Immat Gran (auto) 0.00 (0.00-0.30) K/uL Imm/Tot Granulo (auto) 0.2 % Sodium 139 (135-149) mmol/L Potassium 3.8 (3.6-5.1) mmol/L Chloride 103 (96-114) mmol/L Carbon Dioxide 28 (20-32) mmol/L Anion Gap 8 (7-15) mEq/L BUN 14 (7-30) mg/dL Creatinine 1.1 (0.5-1.5) mg/dL Estimated Creat Clear 39.76 Estimated GFR 52 ml/min Glucose 103 (60-115) mg/dL Lactate 1.1 (0.5-1.9) mmol/L Calcium 9.7 (8.4-10.6) mg/dL Urine Color Yellow (Yellow) Urine Appearance Clear (Clear) Urine pH 6.0 (5.0-8.5) Ur Specific Sanford >= 1.030 (1.000-1.030) Urine Protein 1+ A (Negative) Urine Glucose (UA) Negative (Negative) Urine Ketones Trace A (Negative) Urine Blood Negative (Negative) Urine Nitrite Negative (Negative) Urine Bilirubin 1+ A (Negative) Urine Urobilinogen 0.2 (0.2-1.0) Ur Leukocyte Esterase Negative (Negative) Urine RBC 0-2 (0-2) Urine WBC 0-2 (0-5) Ur Squamous Epith Cells Few (None-Few) Amorphous Sediment Few A (None) Urine Bacteria None (None) Discharge Plan Discharge Clinical Impression: Colitis, Superior mesenteric artery thrombosis, Atrial fibrillation, Adrenal nodule Patient Disposition: [facility] Condition: Stable Instructions: A-fib (Atrial Fibrillation) (ED), Colitis (ED), Blood Thinners (ED) Additional Instructions: Take Augmentin and Eliquis as prescribed Follow-up with vascular surgery at [facility] Your CT scan shows a nodule on the right adrenal gland that is stable from prior of October 2023 Activity Level: No Restrictions Discharge Diet: Regular Prescriptions: No Action lisinopril 10 mg tablet 10 mg PO DAILY metoprolol tartrate 25 mg tablet 25 mg PO BID oxycodone 5 mg Tablet 2.5 mg PO Q6H PRNQty: 10 0RF sulfamethoxazole-trimethoprim [Bactrim DS] 800-160 mg tablet 1 tab PO BID Qty: 10 0RF Stand Alone Forms: My[facility] Info Instructions
--- NOTE | 2024-08-03 18:49 | CRLHL7_ITS ---
For Patients: As a result of the 21st Century Cures Act, medical imaging exams and procedure reports are released immediately into your electronic medical record. You may view this report before your referring provider. If you have questions, please contact your health care provider. INDICATION: Lower abdominal pain, diarrhea, blood in stool. TECHNIQUE: CT abdomen and pelvis acquired with 112 cc Isovue 370 IV contrast. COMPARISON: November 06, 2023. FINDINGS: Lower chest: Scattered atelectasis. Tiny hiatal hernia. Liver: Mildly decreased hepatic attenuation. No suspicious masses. Gallbladder and bile ducts: Unremarkable. No stones or inflammation. No biliary dilatation. Pancreas: Unremarkable. No mass or inflammation. Spleen: Unremarkable. Normal in size. No masses. Adrenal glands: Stable tiny right adrenal nodule. Kidneys: Unremarkable. No suspicious masses, stones, or hydronephrosis. GI tract: Circumferential wall thickening involving the descending and sigmoid colon. No bowel obstruction. Normal appendix. Vasculature: Aortoiliac arterial calcifications. Focal thrombus involving the proximal SMA (series 2/image 46, series 5/image 75). Abdominal aorta is normal in caliber. Lymph nodes: No lymphadenopathy. Peritoneum/Abdominal Wall: Unremarkable. No sign of mass or infiltration. No free air or significant free fluid. Pelvis: Unremarkable. Bones: Right hip arthroplasty causing streak artifact. IMPRESSION: Circumferential bowel wall thickening involving the descending and sigmoid colon, suggestive of acute colitis, favored to be infectious/inflammatory in etiology. Additional focal thrombus involving the proximal SMA. However, given appearance of the bowel wall, normal lactic acid, and the absence of pneumatosis or free intraperitoneal air, this is favored to be an incidental finding. Patient might benefit from nonemergent vascular surgery consultation. Case discussed with Shiva Groves at 8:40 p.m. on 08/03/2024. Please note that all CT scans at this facility use dose modulation, iterative reconstruction, and/or weight-based dosing when appropriate to reduce radiation dose to as low as reasonably achievable. Dictated by Joao Venegas MD @ 08/03/2024 8:46:45 PM (Electronically Signed)
[2024-08-03] MEDS: 0.9 % SODIUM CHLORIDE 1000 ml 1,000 ML IV (19:32)
[2024-08-03] MEDS: METOPROLOL TARTRATE 25 MG TABLET PO (19:38)
[2024-08-03 19:43] LABS: Lactate* 1.1 mmol/L (0.5-1.9)
[2024-08-03 20:00] LABS: Chloride* 103 mmol/L (96-114); Potassium* 3.8 mmol/L (3.6-5.1); Sodium* 139 mmol/L (135-149)
[2024-08-03 20:03] LABS: Anion Gap 8 mEq/L (7-15); Blood Urea Nitrogen* 14 mg/dL (7-30); Calcium* 9.7 mg/dL (8.4-10.6); Carbon Dioxide* 28 mmol/L (20-32); Creatinine* 1.1 mg/dL (0.5-1.5); Est. Creatinine Clearance* 39.76; Estimated Glomerular Filt Rate 52 ml/min; Glucose* 103 mg/dL (60-115)
[2024-08-03 20:06] LABS: Basophils Percent Auto 0.4 % (0.0-3.0); Eosinophils Percent Auto 2.4 % (0.0-7.0); Hematocrit 47.1 % (33.0-51.0); Immature Granulocytes Pct Auto 0.2 %; Lymphocytes Percent Auto 12.9 % (20-44); Mean Corpuscular HGB Conc 32 gm/dL (32-36); Mean Corpuscular Hemoglobin 28 pg (26-34); Mean Corpuscular Volume 86 fL (80-100); Monocytes Percent Auto 5.3 % (0.0-11.0); Neutrophils Percent Auto 78.8 % (42.0-72.0); Platelet Count* 733 K/uL (140-440); RDW Coefficient of Variation % 14.4 % (11.5-15.5); Red Blood Count 5.45 m/uL (4.00-5.20)
[2024-08-03 20:09] LABS: Slide Review Reflex No
[2024-08-03 20:29] LABS: Appearance Urine Clear (Clear); Bilirubin Urine 1+ (Negative); Blood Urine Negative (Negative); Color Urine Yellow (Yellow); Glucose Urine Negative (Negative); Ketones Urine Trace (Negative); Leukocyte Esterase Urine Negative (Negative); Nitrite Urine Negative (Negative); Protein Urine 1+ (Negative); Specific Gravity Urine >= 1.030 (1.000-1.030); Urobilinogen Urine 0.2 (0.2-1.0)
[2024-08-03 20:54] LABS: Amorphous Sediment Urine Few; RBC Urine 0-2 (0-2); Squamous Epithelial Cell Urine Few (None-Few); WBC Urine 0-2 (0-5)
[2024-08-03] MEDS: AMOXICILLIN/CLAVULANATE 875 mg/125 mg TABLET PO (21:32)
--- NOTE | 2024-08-07 00:57 | ED.NURSE ---
Patient's family is here looking for patient's car keys. Chart accessed to find out date of service and look for notes regarding pt belongings.
== END 2024-08-03 23:00 | disposition short-term general hospital (02) ==
PROVIDERS: Emergency Provider Family Medicine
DX: K52.9 Noninfective gastroenteritis and colitis, unspecified (principal); K55.069 Acute infarction of intestine, part and extent unspecified; I48.91 Unspecified atrial fibrillation; E27.8 Other specified disorders of adrenal gland
CPT/HCPCS: 36415; 74177; 80048; 81001; 83605; 83789; 85025; 87045; 87046; 87427; 93005; 96360; 99285; A9270; J7030; Q9967

== ENCOUNTER 2024-08-03 22:49 | Outpatient (CLI) | payer MEDICARE, OTHER, SELFPAY | END 2024-08-03 22:50 | disposition home or self-care (01) | LOC: AMB 08-13 07:58 | PROVIDERS: Visit Provider Family Medicine | DX: K52.9 Noninfective gastroenteritis and colitis, unspecified (principal); K55.069 Acute infarction of intestine, part and extent unspecified; I48.91 Unspecified atrial fibrillation; E27.9 Disorder of adrenal gland, unspecified | CPT/HCPCS: A0425; A0429 ==